=== PATIENT | male | born 1960 | race Caucasian/White ===

== ENCOUNTER → 2016-04-03 | Outpatient (CLI) | payer BC ==
[~2016-04-03] MED LIST: ATV1 PO; CHN5 PO; LISI20TA3 PO; LPT10 PO; RXC5 PO; TAMS0.4C38 PO
--- NOTE | 2016-04-03 09:03 | DIAGNOSTIC IMAGING REPORT ---
CT LUNG SCREENING, LOW DOSE WITH COMPUTER-AIDED DETECTION (CAD) CLINICAL HISTORY: Smoking history. Lung cancer screening. COMPARISON STUDY: Chest x-ray dated 03/23/14. CT DOSE: 94.20 mGy.cm TECHNIQUE: Low-dose helical CT was acquired without intravenous contrast from lung apices to bases and reconstructed at 2.5 mm every 2 mm. CAD was utilized for this study. FINDINGS: Thyroid: Imaged portions of the thyroid gland are normal in appearance. Thoracic aorta: There is mild atherosclerotic calcification of the thoracic aorta, which is normal in caliber and demonstrates standard 3 vessel arch anatomy. Heart: The heart is top normal in size and without pericardial effusion. There are coronary artery calcifications. The pulmonary trunk is normal in caliber. Lungs and pleural spaces: There is emphysematous change. No airspace consolidation or pleural effusion is identified. A 2 mm right middle lobe nodule is incidentally noted on image #[id number]. The trachea and central airways are clear. Mediastinum: There is no mediastinal lymphadenopathy. Aby: Not well assessed without IV contrast. Axilla: Clear. Upper abdomen: The liver appears enlarged and steatotic. Partially visualized upper abdominal viscera is otherwise within normal limits. Skeletal structures: There are no lytic or blastic osseous lesions. Mild arthritic change is noted in the shoulders. IMPRESSION: 1. Mild emphysema. 2. There is no airspace consolidation or pleural effusion. 3. No concerning pulmonary lesion is seen. CAD FINDINGS: Overall Lung RADS Category: 1 Lung RADS Management Recommendation: Lung-RADS 1: Continue annual screening in 12 months. Lung RADS Follow Up Date: 2017-04-03 Lung RADS Nodule ID: Electronically signed by: Gato Kaiser M.D. 04/03/2016 9:02 AM Dictated Date/Time: 04/03/2016 8:55 AM
== END | disposition home or self-care (01) ==
LOC: C.CTS 07:54
PROVIDERS: ATTEND Nurse Practitioner Family
DX: Z12.2 Encounter for screening for malignant neoplasm of respiratory organs (principal); F17.200 Nicotine dependence, unspecified, uncomplicated

== ENCOUNTER → 2017-04-05 | Outpatient (CLI) | payer OTHER ==
--- NOTE | 2017-04-05 11:38 | DIAGNOSTIC IMAGING REPORT ---
CT LUNG SCREENING, LOW DOSE WITH COMPUTER-AIDED DETECTION (CAD) CLINICAL HISTORY: 50 pack-year smoker. Lung screening study COMPARISON STUDY: 04/03/2016 CT DOSE: 91.27 mGy.cm TECHNIQUE: Low-dose helical CT was acquired without intravenous contrast from lung apices to bases and reconstructed at 2.5 mm every 2 mm. CAD was utilized for this study. A dose lowering technique was utilized adhering to the principles of ALARA. FINDINGS: Thyroid: Imaged portions of the thyroid gland are normal in appearance. Thoracic aorta: The thoracic aorta is normal in course and caliber, noting standard 3 vessel arch anatomy. Heart: The heart is normal in size. There are moderate coronary artery calcifications Lungs and pleural spaces: There is a stable 2 mm right middle lobe pulmonary nodule as visualized in image #[id number]. Mediastinum: There is no mediastinal lymphadenopathy. Aby: Clear. Axilla: Clear. Upper abdomen: Partially visualized upper abdominal viscera is within normal limits. Skeletal structures: There are no lytic or blastic osseous lesions. IMPRESSION: 1. No significant change from the preceding study 2. No suspicious pulmonary nodules 3. Continued one-year screening follow-up CAD FINDINGS: Overall Lung RADS Category: 1 Lung RADS Management Recommendation: Continue annual lung cancer screening. Lung RADS Follow Up Date: 2018-04-05 Lung RADS Nodule ID: Electronically signed by: Vimal Garay M.D. 04/05/2017 11:37 AM Dictated Date/Time: 04/05/2017 11:29 AM
== END | disposition home or self-care (01) ==
LOC: C.CTS 10:54
PROVIDERS: ATTEND Nurse Practitioner Family
DX: Z72.0 Tobacco use (principal); Z12.2 Encounter for screening for malignant neoplasm of respiratory organs

== ENCOUNTER 2018-09-07 06:11 | Inpatient (IN) ==
--- NOTE | 2018-08-26 16:38 | PAT Medication Instructions ---
Medication Instructions Date of Service August 26, 2018 Home Medications acetaminophen [Tylenol Extra Strength] 1,000 mg PO Q6H PRN amitriptyline 25 mg PO QPM atorvastatin 20 mg PO QAM cholecalciferol (vitamin D3) 2,000 unit PO QAM cyclobenzaprine 10 mg PO HS lisinopril 20 mg PO QAM methocarbamol 500 mg PO BID naproxen sodium [Aleve] 440 mg PO BID PRN omeprazole 20 mg PO QAM tamsulosin 0.4 mg PO QAM varenicline [Chantix] 1 mg PO BID ASK your surgeon for instructions naproxen sodium [Aleve] 440 mg PO BID PRN DO NOT take the morning of surgery cholecalciferol (vitamin D3) 2,000 unit PO QAM lisinopril 20 mg PO QAM methocarbamol 500 mg PO BID Take morning of surgery With a small sip of water, OTHERWISE NOTHING TO EAT OR DRINK AFTER MIDNIGHT: acetaminophen [Tylenol Extra Strength] 1,000 mg PO Q6H PRN (if needed) atorvastatin 20 mg PO QAM omeprazole 20 mg PO QAM tamsulosin 0.4 mg PO QAM varenicline [Chantix] 1 mg PO BID Take evening before surgery acetaminophen [Tylenol Extra Strength] 1,000 mg PO Q6H PRN (if needed) amitriptyline 25 mg PO QPM cyclobenzaprine 10 mg PO HS methocarbamol 500 mg PO BID varenicline [Chantix] 1 mg PO BID Other Notes If you have any questions please call us at [phone] or [phone] or [phone] or [phone]
--- NOTE | 2018-08-30 11:49 | Anesthesiology Consultation ---
Date of Service August 30, 2018 Assessment & Plan (1) Encounter for pre-operative examination: S/P lumbar surgery 09/2015 = MAC #3, ETT 8.0, grade view I, no issues noted on record. Egg allergy -- however, pt has had propofol with several past surgeries. Chart Review Chart Review: Acceptable Risk for Surgery and Patient seen in Pre Admission Testing Teaching & Discussion Instructed NPO after midnight before surgery, except medications with 15 cc of water. Medication instructions provided according to the PAT guidelines. History Surgery Operation Date: 09/07/18 11:45 Proposed Procedures p C5-C6, C6-C7 Anterior Cervical Discectomy and Fusion, C4-C5 Hardware Removal, Spinal Cord Monitoring - Coy Evans, Height/Weight Height: 5 ft 11 in Weight: 106.5 kg Allergies Allergy/AdvReac Type Severity Reaction Status Date / Time Egg Derived AdvReac Unknown GI UPSET Verified 08/25/18 11:43 Medications Home Medications Medication Instructions Recorded Confirmed Last Taken acetaminophen [Tylenol Extra 1,000 mg PO Q6H PRN 08/25/18 08/25/18 Unknown Strength] amitriptyline 25 mg PO QPM 08/25/18 08/25/18 Unknown atorvastatin 20 mg PO QAM 08/25/18 08/25/18 Unknown cholecalciferol (vitamin D3) 2,000 unit PO QAM 08/25/18 08/25/18 Unknown [Vitamin D3] cyclobenzaprine 10 mg PO HS 08/25/18 08/25/18 Unknown lisinopril 20 mg PO QAM 08/25/18 08/25/18 Unknown methocarbamol 500 mg PO BID 08/25/18 08/25/18 Unknown naproxen sodium [Aleve] 440 mg PO BID PRN 08/25/18 08/25/18 Unknown omeprazole 20 mg PO QAM 08/25/18 08/25/18 Unknown tamsulosin 0.4 mg PO QAM 08/25/18 08/25/18 Unknown varenicline [Chantix] 1 mg PO BID 08/25/18 08/25/18 Unknown Past Medical History Medical History Arthritis BPH (benign prostatic hyperplasia) Chronic obstructive pulmonary disease BORDERLINE-NO INHALERS GERD (gastroesophageal reflux disease) Hyperlipidemia Hypertension Obesity Exercise / Class Metabolic Activity II 4-5 Yardwork/Stairs/Walk up hill (Does stairs daily without CP or SOB) Past Family History Family History Brother Family history of diabetes mellitus Brother Family history of diabetes mellitus Mother Family history of diabetes mellitus Past Surgical History Surgical History Fusion of spine CERVICAL Fusion of spine LUMBAR H/O elbow surgery LEFT ULNAR NERVE History of arthroscopy KNEE History of colonoscopy S/P debridement ANKLE Past Anesthesia History No Hx of Anesthesia Complications and No Family Hx of Anesthesia Complications History of PONV No Hx of PONV and No Hx of Motion Sickness STOP BANG Total 5 Social History Smoking Status: Current every day smoker Smoking cigarettes per day: WAS 1 1 /2 PPD-DOWN TO 5 CIGS A DAY-TRYING TO QUIT ON CHANTIX Do You Dip or Chew Tobacco: No Hx Alcohol Use: Yes Alcohol type: beer alcohol intake frequency: 3 or more drinks per day (6-8 drinks daily) Hx Substance Use: No Review of Systems Pt denies any recent chest pain, shortness of breath, palpitations, cough, fever or URI. Physical Exam Vital Signs BP: 131/80 P: 62bpm SPO2: 94% RA T: 98.3 F R: 18 ENMT Mouth: + dental restorations (few crowns); no chipped teeth and no loose teeth Thyromental Distance: < 3.5 Finger Breadths (3) Mallampati Class: I Missing several teeth. Neck + limited neck extension (moderately, 2/2 fusion and pain) Respiratory normal respiratory effort Very soft end expiratory wheeze in R lung base, otherwise CTA. Cardiovascular Rate/Rhythm: regular rate and regular rhythm Heart Sounds: no murmur Vessels: no carotid bruit Extremities: no edema Testing Laboratory Results 08/30/18 11:59 PT 10.9 Seconds (9.0-12.0) 08/30/18 11:59 INR 1.1 (0.9-1.1) 08/30/18 11:59 APTT 26.3 Seconds (21.0-31.0) 08/30/18 11:59 Urine Color Yellow 08/30/18 11:59 Urine Appearance Clear (Clear) 08/30/18 11:59 Urine pH 5.0 (4.5-7.5) 08/30/18 11:59 Ur Specific [place] 1.024 (1.000-1.030) 08/30/18 11:59 Urine Protein Negative (Negative) 08/30/18 11:59 Urine Glucose (UA) Negative (Negative) 08/30/18 11:59 Urine Ketones Negative (Negative) 08/30/18 11:59 Urine Nitrite Negative (Negative) 08/30/18 11:59 Ur Leukocyte Esterase Negative (Negative) 08/30/18 11:59 Blood Type O Positive 08/30/18 11:59 Antibody Screen NEGATIVE 08/30/18 11:59 Electrocardiogram Date: 08/30/18 Findings: + NSR @ (61) Other Testing 06/06/[address] IMPRESSION: 1. No acute intrathoracic abnormality. 2. Unchanged 2 mm solid nodule right middle lobe, stable from 04/03/2016 suggestive of benign etiology. No suspicious pulmonary nodules identified.
[2018-08-30 13:48] LABS: Basophils # (auto) 0.01 K/uL (0-0.2); Basophils % (auto) 0.1 %; Eosinophils # (auto) 0.19 K/uL (0-0.5); Eosinophils % (auto) 2.6 %; Hematocrit (blood only) 41.1 % (42-52); Hemoglobin 13.8 g/dL (14.0-18.0); Immature Granulocytes # (auto) 0.03 K/uL (0.00-0.02); Immature Granulocytes % (auto) 0.4 %; Lymphocytes # (auto) 2.84 K/uL (1.2-3.4); Lymphocytes % (auto) 39.2 %; Mean Corpuscular Hgb Conc 33.6 g/dL (32-36); Mean Corpuscular Volume 91.7 fL (80-100); Mean Platelet Volume 10.8 fL (7.4-10.4); Monocytes # (auto) 0.72 K/uL (0.11-0.59); Monocytes % (auto) 9.9 %; Neutrophils # (auto) 3.46 K/uL (1.4-6.5); Neutrophils % (auto) 47.8 %; Platelet Count 175 K/uL (130-400); RDW Coefficient of Variation 12.9 % (11.5-14.5); RDW Standard Deviation 43.1 fL (36.4-46.3); Red Blood Count 4.48 M/uL (4.7-6.1); White Blood Count 7.25 K/uL (4.8-10.8)
[2018-08-30 13:49] LABS: Appearance Urine Clear (Clear); Bilirubin Urine Negative (Negative); Blood Urine Negative (Negative); Color Urine Yellow; Glucose Urine UA Negative (Negative); Ketones Urine Negative (Negative); Leukocyte Esterase Urine Negative (Negative); Nitrite Urine Negative (Negative); Protein Urine Negative (Negative); Specific Gravity Urine 1.024 (1.000-1.030); Urobilinogen Urine Negative (Negative)
[2018-08-30 13:58] LABS: INR 1.1 (0.9-1.1); Partial Thromboplastin Time 26.3 Seconds (21.0-31.0); Prothrombin Time 10.9 Seconds (9.0-12.0)
[~2018-09-07 06:11] MED LIST changes: -ATV1 PO; +CEFAZOLIN 2000MG 2,000 MG/15 ML SYR IV SCH; -CHN5 PO; -LISI20TA3 PO; -LPT10 PO; +LR 15ML/HR IV SCH; -RXC5 PO; -TAMS0.4C38 PO
[2018-09-07] MEDS ORDERED: fentaNYL citrate 100 MCG/2 ML VIAL ONE ×4 (06:40→09:36)
[2018-09-07] MEDS ORDERED: MIDAZOLAM HCL 1 MG/ML 2ML VIAL ONE (06:40)
[2018-09-07] MEDS ORDERED: BACITRACIN INJ 50,000 UNIT VIAL ONE (06:55)
[2018-09-07] MEDS ORDERED: ONDANSETRON INJ 2 MG/ML 2 ML VIAL IV PRN ×2 (06:57→11:26)
[2018-09-07] MEDS ORDERED: ATROPINE SULFATE 0.1 MG/ML 10ML SYR IV PRN (06:57)
[2018-09-07] MEDS ORDERED: fentaNYL citrate 100 MCG/2 ML VIAL IV PRN (06:57)
[2018-09-07] MEDS ORDERED: HYDROmorphone INJ 2 MG/ML SYR/VIAL IV PRN (06:57)
[2018-09-07] MEDS ORDERED: ePHEDrine sulfate 50 MG/ML AMP IV PRN (06:57)
[2018-09-07] MEDS ORDERED: PROPOFOL IV EMULSION 10 MG/ML 100 ML VIAL IV ONE (07:13)
[2018-09-07] MEDS ORDERED: HYDROmorphone INJ 2 MG/ML SYR/VIAL ONE (07:14)
[2018-09-07] MEDS ORDERED: PROPOFOL IV EMULSION 10 MG/ML 20 ML VIAL IV ONE (07:15)
[2018-09-07] MEDS ORDERED: ONDANSETRON INJ 2 MG/ML 2 ML VIAL ONE (07:15)
[2018-09-07] MEDS ORDERED: GLYCOPYRROLATE 0.2 MG/ML VIAL ONE (07:15)
[2018-09-07] MEDS ORDERED: NEOSTIGMINE METHYLSULFATE 1 MG/ML 10ML VIAL ONE (07:15)
[2018-09-07] MEDS ORDERED: DEXAMETHASONE SOD INJ 4 MG/ML VIAL ONE (07:15)
[2018-09-07] MEDS ORDERED: LIDOCAINE HCL 2% 2 ML VIAL/AMP(20MG/ML) INFIL ONE (07:15)
[2018-09-07] MEDS ORDERED: ROCURONIUM BROMIDE 10 MG/ML 5 ML VIAL ONE (07:15)
--- NOTE | 2018-09-07 07:32 | History & Physical Bridge Note ---
Date of Service September 07, 2018 History & Physical Bridge Note I have examined the patient, reviewed the History & Physical and in the interval since the performance of the History & Physical I have noted the following changes of clinical significance: no changes noted
--- NOTE | 2018-09-07 07:33 | History & Physical Report ---
Date of Service September 07, 2018 Assessment & Plan (1) Cervical stenosis of spinal canal: Anterior cervical discectomy and fusion C5-6 and C6-7 hardware removal C4- 5 Present on Admission?: Yes History of Present Illness Chief Complaint: Neck and arm pain Primary Care Provider: Agnes Carrasco This is a 58-year-old male that presents with chronic persistent neck and arm pain. After failing extensive course of nonoperative care is here for surgical intervention. Allergies Allergy/AdvReac Type Severity Reaction Status Date / Time Egg Derived AdvReac Unknown GI UPSET Verified 08/25/18 11:43 Home Medications Home Medications Medication Instructions Recorded Confirmed Type acetaminophen [Tylenol Extra 1,000 mg PO Q6H PRN 08/25/18 09/07/18 History Strength] amitriptyline 25 mg PO QPM 08/25/18 09/07/18 History atorvastatin 20 mg PO QAM 08/25/18 09/07/18 History cholecalciferol (vitamin D3) 2,000 unit PO QAM 08/25/18 09/07/18 History [Vitamin D3] cyclobenzaprine 10 mg PO HS 08/25/18 09/07/18 History lisinopril 20 mg PO QAM 08/25/18 09/07/18 History methocarbamol 500 mg PO BID 08/25/18 09/07/18 History naproxen sodium [Aleve] 440 mg PO BID PRN 08/25/18 09/07/18 History omeprazole 20 mg PO QAM 08/25/18 09/07/18 History tamsulosin 0.4 mg PO QAM 08/25/18 09/07/18 History varenicline [Chantix] 1 mg PO BID 08/25/18 09/07/18 History Past Med/Surg History Medical History Arthritis BPH (benign prostatic hyperplasia) Chronic obstructive pulmonary disease BORDERLINE-NO INHALERS GERD (gastroesophageal reflux disease) Hyperlipidemia Hypertension Obesity Surgical History Fusion of spine CERVICAL Fusion of spine LUMBAR H/O elbow surgery LEFT ULNAR NERVE History of arthroscopy KNEE History of colonoscopy S/P debridement ANKLE Family History Brother Family history of diabetes mellitus Brother Family history of diabetes mellitus Mother Family history of diabetes mellitus Social History Preferred Language: Italian Communication Ability: Effective Clinical Research Monitor Required: No Beliefs That Will Affect Care: None Current Living Situation: Spouse and Family Other Information That Helps Us Care for You: No Feels Safe at Home: Yes Safety Concerns: Feels Safe At This Time Smoking Status: Current every day smoker Cigarettes Per Day: WAS 1 1 /2 PPD- DOWN TO 5 CIGS A DAY-TRYING TO QUIT ON CHANTIX Do You Dip or Chew Tobacco: No Second Hand Exposure: Yes Hx Alcohol Use: Yes Alcohol type: beer Hx Substance Use: No Physical Exam Physical Exam: Patient is alert and oriented neurologically intact. Results & Data Vital Signs (Past 12 Hours) Vital Signs Temp Pulse Resp BP Pulse Ox 09/07/18 06:53 36.5 C 64 22 142/82 H 95
[2018-09-07] MEDS ORDERED: PHENYLEPHRINE 100MCG/ML 5ML SYR ONE (08:43)
[2018-09-07] MEDS ORDERED: ALBUTEROL HFA INHALER 8.5 GM ONE (08:43)
[2018-09-07] MEDS ORDERED: ePHEDrine sulfate 50 MG/ML AMP ONE ×2 (08:43→09:09)
[2018-09-07] MEDS ORDERED: ePHEDrine sulfate 50 MG/ML SYR ONE (08:43)
--- NOTE | 2018-09-07 09:48 | Operative Report ---
Post Operative Report Pre & Post Diagnosis Operation Date: 09/07/18 07:45 Pre-Op Diagnosis: Cervical spinal stenosis with radiculopathy Post-Op Diagnosis: Same Procedure Operation Date: 09/07/18 07:45 Actual Procedures #1 removal of anterior cervical instrumentation C4-5. #2 exploration of fusion C4-5. #3 anterior cervical discectomy with bilateral foraminotomies C5-6 and C 6-7. #4 anterior cervical arthrodesis C5-6 and C6-7. #5 placement of cortical allograft filled with DBM 9 mm in height at C5-6 and 8 mm at C6-7. #6 application braga plate and screws from C5-C7. Surgeon Coy Evans, DO Digital Marketing Specialist Lucinda Naranjo Estimated Blood Loss 25 Findings See Below Patient is 5 foot 11 inches tall weighing 106 kg with a BMI in excess of 32. Patient's significant body habitus created increased technical difficulty adding at least 25% increase in operative time. Specimens None Indications This is a 58-year-old male well-known to me that presents with chronic persistent neck and arm symptoms. After failing extensive course of nonoperative care he is here for surgical intervention. Description of Procedure Patient was met with identified and informed consent obtained. Patient was then taken to the operative suite underwent intubation placed in a supine position Esequiel table the head [place] medical director/head team physician. All bony prominences well-padded eyes inspected to ensure no external pressure placed upon. This point the anterior cervical spine was prepped and draped in the normal sterile fashion. Identified the C5-6 disc patient transverse incision was placed on the right anterior. Marked scarring was appreciated and encountered throughout the dissection from his previous surgery. Nonetheless was able to expose from C4- C7. I then removed the anterior cervical plate C4-C5 explore the fusion mass noting it to be intact. And then performed a complete discectomy of C5-6 out to the uncovertebral joints bilaterally. This included bilateral foraminotomies. [place] distracting pins were utilized to assist in visualization. The endplates were then burred to subcortical being bone and a 9 mm cortical allograft filled with DBM tapped in position. Then proceeded to C6-7 again complete discectomy performed out to the uncovertebral joints bilaterally. [place] distracting pins again utilized. Perform bilateral foraminotomies. Endplates were then burred to subcortical bleeding bone and 8 mm cortical allograft filled with DBM tapped in position. Distraction apparatus was removed all anterior osteophytes's burred with smooth cortical surface and a braga plate and screws applied with the assistance of fluoroscopy. Incision was then copiously irrigated explored to ensure no damage to surrounding structures or remaining bleeding. 10 round DIEGO drain inserted. The incision was then closed with 2 Vicryl in a fashion for Monocryl for final closure. Steri-Strip sterile dressings placed. Patient will continue to PACU stable condition. Please note Lucinda Naranjo present all the entire procedure involved in patient positioning complex portions of the surgery and final skin closure. Lastly spinal cord monitoring was utilized that procedure no changes noted. I attest to the content of the Intraoperative Record and any orders documented therein. Any exceptions are noted below.
--- NOTE | 2018-09-07 09:51 | Fluoroscopy Report ---
FL cervical 2-3V HISTORY: 58 years-old Male ACDF C5-7 status post lower cervical spine fusion COMPARISON: MRI cervical spine 04/25/2018 TECHNIQUE: 2 spot fluoroscopic images of the cervical spine were obtained utilizing 8.5 seconds fluor oscopy time FINDINGS: Anterior plate and screw fusion hardware is noted at what appears to be the C5-C7 levels. Endotrachea l tube and surgical drainage catheter noted. Inferior aspect of the hardware is only partially imaged on the lateral view secondary to overlying soft tissue. Multilevel spondylitic spurring with facet a rthrosis. IMPRESSION: Fluoroscopic assistance as above. Please see operative report for further details. The above report was generated using voice recognition software. It may contain grammatical, syntax o r spelling errors. Electronically signed by: Garfield Rodgers M.D. 09/07/2018 9:50 AM
[2018-09-07] MEDS ORDERED: ESMOLOL HCL INJ 10 MG/ML 10ML VIAL IV ONE (09:53)
[2018-09-07] MEDS ORDERED: HYDROmorphone INJ 0.5 MG/0.5 ML SYR IV PRN (11:26)
[2018-09-07] MEDS ORDERED: DO NOT ADMINISTER PNEUMOCOCCAL VACCINE PRN (11:26)
[2018-09-07] MEDS ORDERED: DiphenhydrAMINE HCL 50 MG/ML VIAL IV PRN (11:26)
[2018-09-07] MEDS ORDERED: ACETAMINOPHEN 500 MG TAB PO PRN (11:26)
[2018-09-07] MEDS ORDERED: DEXAMETHASONE SOD PHOSPHATE 8 MG in SYRINGE 0 ML IV PRN (11:26)
[2018-09-07] MEDS ORDERED: NALOXONE HCL 0.4 MG/1 ML VIAL/CARP IV PRN (11:26)
[2018-09-07] MEDS ORDERED: MAGNESIUM HYDROXIDE SUSP 30 ML UDC PO PRN (11:26)
[2018-09-07] MEDS ORDERED: LORazepam 0.5 MG TAB PO PRN (11:26)
[2018-09-07] MEDS ORDERED: LORazepam 0.5 MG/1 ML VIAL IV PRN (11:26)
[2018-09-07] MEDS ORDERED: ACETAMINOPHEN 1,000 MG/100 ML VIAL IV PRN (11:26)
[2018-09-07] MEDS ORDERED: DO NOT ADMINISTER FLU VACCINE PRN (11:26)
[2018-09-07] MEDS ORDERED: RACEPINEPHRINE 2.25% NEBU SOLN 0.5 ML VIAL INH PRN (11:26)
[2018-09-07] MEDS ORDERED: SCOPOLAMINE 1.5 MG TDSY TD SCH (12:00)
[2018-09-07] MEDS ORDERED: SUCCINYLCHOLINE CHLORIDE 20 MG/ML 10 ML VIAL ONE (13:26)
[2018-09-07] MEDS: LACTATED RINGER'S 1,000 ML IV SCH (13:29)
--- NOTE | 2018-09-07 13:45 | Anesthesiology Progress Note ---
Date of Service September 07, 2018 Anesthesia Post Procedure Vital Signs Vital Signs: Temp Pulse Pulse Pulse Resp BP Pulse Ox 09/07/18 13:15 36.3 C L 85 16 145/74 H 96 09/07/18 12:15 36.3 C L 74 18 147/74 H 97 09/07/18 11:48 82 16 94 09/07/18 11:45 36.3 C L 73 16 157/71 H 97 09/07/18 11:15 36.5 C 77 16 147/71 H 98 09/07/18 11:00 36.3 C L 74 16 146/64 H 98 09/07/18 10:50 36.3 C L 72 16 163/67 H 99 09/07/18 10:40 36.4 C L 75 20 159/73 H 99 09/07/18 10:30 78 19 151/74 H 98 09/07/18 10:20 75 15 162/79 H 97 09/07/18 10:10 79 14 141/71 H 98 09/07/18 10:00 79 14 146/76 H 100 09/07/18 09:50 36.1 C L 96 H 14 169/87 H 97 09/07/18 06:53 36.5 C 64 22 142/82 H 95 Pain Intensity Bilateral Lower Neck: Pain Intensity: 4 Bilateral Lower Back: Pain Intensity: 7 Transfer of Care Handoff Completed per policy Notes Mental Status: alert / awake / arousable and participated in evaluation Patient Amnestic to Procedure: Yes Nausea / Vomiting: adequately controlled Pain: adequately controlled Airway Patency, RR, SpO2: stable & adequate BP & HR: stable & adequate Hydration State: stable & adequate Anesthetic Complications: no major complications apparent and Pt Satisfied with anesthetic care
[2018-09-07] MEDS: CEFAZOLIN 2000MG 2,000 MG/15 ML SYR IV SCH ×2 (16:03→23:16)
[2018-09-07] MEDS: CHECK SCOPOLAMINE PATCH PLACEMENT SCH ×2 (16:16→23:17)
[2018-09-07] MEDS: OXYCODONE HCL IR 5 MG TAB (IMMEDIATE RELEASE) PO PRN ×2 (17:52→21:59)
[2018-09-07] MEDS: DOCUSATE SODIUM 100 MG CAP PO SCH (20:25)
[2018-09-07] MEDS: VARENICLINE 1 MG TAB PO SCH (20:25)
[2018-09-07] MEDS: METHOCARBAMOL 500 MG TABLET PO SCH (20:25)
[2018-09-07] MEDS ORDERED: CYCLOBENZAPRINE HCL 10 MG TAB PO SCH (21:00)
[2018-09-07] MEDS ORDERED: AMITRIPTYLINE HCL 25 MG TAB PO SCH (21:00)
[2018-09-08] MEDS: LACTATED RINGER'S 1,000 ML IV SCH (01:29)
[2018-09-08] MEDS: CEFAZOLIN 2000MG 2,000 MG/15 ML SYR IV SCH (08:10)
[2018-09-08] MEDS: CHECK SCOPOLAMINE PATCH PLACEMENT SCH (08:10)
[2018-09-08] MEDS: OXYCODONE HCL IR 5 MG TAB (IMMEDIATE RELEASE) PO PRN (08:24)
[2018-09-08] MEDS: VARENICLINE 1 MG TAB PO SCH (08:26)
[2018-09-08] MEDS: DOCUSATE SODIUM 100 MG CAP PO SCH (08:26)
[2018-09-08] MEDS: METHOCARBAMOL 500 MG TABLET PO SCH (08:27)
[2018-09-08] MEDS ORDERED: PANTOprazole 40 MG TAB PO SCH (09:00)
[2018-09-08] MEDS ORDERED: LISINOPRIL 20 MG TAB PO SCH (09:00)
[2018-09-08] MEDS ORDERED: CHOLECALCIFEROL 1,000 UNITS TAB PO SCH (09:00)
[2018-09-08] MEDS ORDERED: ATORVASTATIN 20 MG TAB PO SCH (09:00)
[2018-09-08] MEDS ORDERED: TAMSULOSIN HCL 0.4 MG CAP PO SCH (09:00)
--- NOTE | 2018-09-08 12:24 | Discharge Summary ---
Date of Service September 08, 2018 Admission HPI Per Admitting Provider This is a 58-year-old male that presents with chronic persistent neck and arm pain. After failing extensive course of nonoperative care is here for surgical intervention. Principal Diagnosis Cervical spinal stenosis with radiculopathy Discharge Data Allergies Allergy/AdvReac Type Severity Reaction Status Date / Time Egg Derived AdvReac Unknown GI UPSET Verified 08/25/18 11:43 Procedures Performed Operation Date: 09/07/18 07:45 Actual Procedures p C5-C6, C6-C7 Anterior Cervical Discectomy and Fusion, with Spinal Cord Monitoring(Not Applicable) - Coy Evans DO s C4-C5 Hardware Removal(Not Applicable) - Coy Evans DO Ordered Studies 09/07/18 07:45 FL cervical 2-3V Routine FL fluoroscopy <1hr Routine Hospital Course (1) Cervical stenosis of spinal canal: Patient underwent anterior cervical discectomy and fusion tolerated this well was taken to the orthopedic for postoperative. Postop day 1 he was swallowing well no hoarseness arm symptoms markedly improved DIEGO drain decreasing appropriately. Subsequent discharge home. Discharge orders and instructions from the chart for further review. Total Time Total Time Spent Total Time Spent (In Minutes): 10 minutes Discharge Plan Discharge Items Patient Disposition: Home - Self-Care Reason For Visit: Spinal Stenosis, Cervical Region Discharge Diagnosis: cervical stenosis Discharge Goals: Decrease discomfort Activity: Per 'Additional Instructions' section Non-emergency contact: Primary Care Provider Call non-emergency contact if: you have any medication questions Follow-up/Referrals: Agnes Carrasco [Primary Care Provider] - Diet: Regular Addtl Provider Instructions: ACTIVITY RECOMMENDATIONS: SELF CARE INSTRUCTIONS AFTER CERVICAL FUSIONS 1. No smoking. Smoking drastically decreases the chance of a solid fusion. 2. No bending, lifting more than 5 pounds, or twisting (roll like a log when turning in bed). 3. You may shower 3 days after surgery. Thoroughly dry wound. Do not soak in the tub. 4. Cervical collar: Must be worn at all times including sleeping. You may remove the brace only to bath, eat and if you are sitting in a recliner. 5. Please walk as much as you can for exercise. Gradually increase the distance that you walk as your endurance increases. SPECIAL CARE INSTRUCTIONS: VERY IMPORTANT TO READ AND REVIEW A. Do not take any anti-inflammatory medications (i.e. Indocin, Advil, Aspirin, Naprosyn, Aleve, Motrin, etc.) as these may inhibit the chance of a solid fusion. Tylenol is okay to take. B. Your surgical incision has been closed with a cosmetic suture under the skin that will dissolve in about 6 weeks. In 14 days, you can use a pair of clean scissors and cut the suture that is left outside of the skin at the ends of your incision. C. Complications are uncommon, but please contact us if you have any signs or symptoms of: 1. wound infection (fever higher than 102.5 degrees F, redness, separation of wound, drainage, or increasing pain from the incision) 2. blood clots in legs (pain, swelling, redness and warmth in legs) 3. urinary tract infection (fever higher than 102.5 degrees, burning upon urination or increased frequency of urination) 4. nerve problems (inability to walk on your toes or heels, numbness, loss of bowel or bladder control) 5. any other symptoms that concern you. D. Please call the office at if you have any concerns or questions about your operation or recovery. MANAGING PAIN AFTER SPINAL SURGERY 1. Narcotic medication is intended for short-term use and will be provided for surgical pain. Surgical pain usually lasts for a period of 4-6 weeks. Narcotic medication includes Percocet, Vicodin, Darvocet, Tylenol #3 or Lortab. 2. Longer-term pain is more appropriately treated with non-narcotic medication such as Tylenol ES. 3. Muscle spasm is not appropriately treated with narcotics. Muscle relaxers such as Soma, Flexeril or Skelaxin can be used along with Tylenol ES. 4. Remember that we all live with some "aches and pains". This is not unusual or uncommon after an injury or as we get older. 5. We will provide appropriate medication within the normal guidelines of their prescribed use. We will also be very cautious and aware of potential abuse and extended duration of patients' medication needs. 6. Please allow 2-3 days to process refills. Prescriptions will not be mailed but must be picked up at the office. FOLLOW UP VISIT: Keep your scheduled follow-up appointment. Any questions, please call the office at . Prescriptions: New oxycodone 5 mg Tablet 5 mg PO Q4H PRN (Reason: Pain) Qty: 30 RF: 0 Continued cyclobenzaprine 10 mg Tablet 10 mg PO HS RF: 0 methocarbamol 500 mg Tablet 500 mg PO BID RF: 0 atorvastatin 20 mg Tablet 20 mg PO QAM RF: 0 lisinopril 20 mg Tablet 20 mg PO QAM RF: 0 amitriptyline 25 mg Tablet 25 mg PO QPM RF: 0 tamsulosin 0.4 mg Capsule 0.4 mg PO QAM RF: 0 cholecalciferol (vitamin D3) [Vitamin D3] 2,000 unit Capsule 2,000 unit PO QAM RF: 0 Chantix 1 mg Tablet 1 mg PO BID RF: 0 omeprazole 20 mg Tablet,Delayed Release (Dr/Ec) 20 mg PO QAM RF: 0 acetaminophen [Tylenol Extra Strength] 500 mg Tablet 1,000 mg PO Q6H PRN (Reason: Pain) RF: 0 naproxen sodium [Aleve] 220 mg Capsule 440 mg PO BID PRN (Reason: Pain) RF: 0 Stand-Alone Forms: [employer] [facility] [employer], Opioid Pain Management [facility]/Other Patient Handouts: DVT Prevent Discharge Orders: Discharge Order (Routine); Ordered 09/08/18 Ordered By: Coy Evans Admission Data Admit Date/Time: 09/07/18 09:51 Attending Provider: Coy Evans Admit Provider: Coy Evans Primary Care Provider: Agnes Carrasco Service: Surgical Services Other Interventions: Discharge Summary Assessment (RN) Last Done: 09/08/18 10:39 DC Date/Time DO NOT enter until pt leaves facility: 09/08/18 11:56
== END 2018-09-08 11:56 | disposition home or self-care (01) | DRG 473 ==
LOC: ASU 06:11 → 3E 09:51

== ENCOUNTER 2024-04-19 23:10 | Inpatient (IN) ==
--- NOTE | 2024-04-19 23:20 | Emergency Department Note ---
Impression & Plan Pneumonia, RAJIV (acute kidney injury), Hypoxia ED Provider Note CHIEF COMPLAINT: Chest pain HISTORY OF PRESENTING ILLNESS: The patient is a pleasant 64-year-old male who arrives to the emergency department for evaluation of right-sided chest pain. He reports he has had chest pain over the last 3 weeks. He states he is unable to sleep due to pain, therefore decided to come to the emergency department. He also reports some shortness of breath. He reports fever, body aches, and chills. He reports his was recently ill, however her symptoms have resolved. He states he does currently smoke. He states he does drink alcohol, at baseline, usually around 8 beers per day, however he has not had a drink in over a week. He denies abdominal pain, nausea, vomiting. REVIEW OF SYSTEMS: See HPI for pertinent positives and pertinent negatives. ALLERGIES: See below MEDICATIONS: See below PAST MEDICAL HISTORY: See below PHYSICAL EXAM: VITALS: Vitals are noted on the nurse's note and reviewed by myself. Vital signs stable. GENERAL: 64-year-old male, in no acute distress, nondiaphoretic, well-developed well-nourished. SKIN: The skin was without rashes, erythema, edema, or bruising. HEAD: Normocephalic atraumatic. NECK: Supple without nuchal rigidity. No JVD. HEART: Tachycardia with regular rhythm without murmurs gallops or rubs. LUNGS: Clear throughout with the exception of the right middle lobe, coarse lung sounds. ABDOMEN: Positive bowel sounds x 4. Soft, nontender, without masses or organomegaly. Simmons sign negative. No guarding or rebound tenderness. MUSCULOSKELETAL: No muscle atrophy, erythema, or edema noted. Strength 5/5 throughout. NEURO: Patient was alert and oriented to person place and time. No focal neurological deficits. DIFFERENTIAL DIAGNOSIS: Cardiac ischemia, aortic dissection, pulmonary embolism, pneumothorax, pneumonia, pericarditis, myocarditis, esophageal rupture, GERD, cholecystitis, pancreatitis, musculoskeletal, as well as other pathologies. 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 Patient was placed on the secondary school principal and continuous pulse ox. Patient was noted to be in normal sinus rhythm at an initial rate of 103 bpm per my interpretation. EKG: EKG was interpreted by myself as NSR at a rate of 97bpm with no ST elevation, or signs of ischemia, with no significant change from previous in 2021. INTERPRETATION OF LABS: I interpreted the labs with full lab results as below in the lab section of this note. Pertinent lab results discussed in the MDM section below. INTERPRETATION OF IMAGING: Imaging studies were interpreted by myself and read by radiology as per the imaging section of this note. CHRONIC MEDICAL/SOCIAL CONDITIONS AFFECTING CARE: Current smoker MDM SUMMARY: The patient is a 64-year-old male who arrives to the emergency department for evaluation of the above-stated complaint. Upon arrival, a cardiac workup was obtained including a saline lock, basic labs,, lipase, troponin, chest x-ray, and EKG as well as an upper respiratory BioFire panel. Lab work shows leukocytosis, 15.23, with a stable anemia. CMP shows acute kidney injury, with elevated BUN 31, creatinine 1.94. Lipase negative. Initial troponin 15.5. Upper respiratory BioFire panel negative. Chest x-ray per my interpretation shows linear density, the right middle lobe. The patient was requiring supplemental O2, for an oxygen saturation of 88%. He was placed on 2 L nasal cannula, with improvement in saturation to the low to mid 90s. Blood cultures, lactate, procalcitonin were obtained as well as initiation of empiric antibiotics. Lactate 0.9, procalcitonin 1.15. CT imaging of the chest with IV contrast was obtained which shows I right upper lobe anterior segment air space subsegmental consolidation extending from the hilum level to the peripheral pleura, limited with the minor fissure. I spoke with Dr. Hayde Salas, from the [facility] hospitalist group, who agreed to evaluate the patient, and admit him under her services. Please refer to her documentation for further patient workup and care. DIAGNOSIS: Hypoxia, pneumonia, acute kidney injury The chart was completed utilizing [employer] Speech voice recognition software. Grammatical errors, random word insertions, pronoun errors, and incomplete sentences are an occasional consequence of this system due to software limitations, ambient noise, and hardware issues. Any formal questions or concerns about the content, text, or information contained within the body of this dictation should be directly addressed to the provider for clarification. Past Med/Surg History Problem List (Updated 04/20/24 @ 04:55 by GERA López) Hypoxia (Acute) Hyponatremia RAJIV (acute kidney injury) (Acute) Pneumonia (Acute) Alcohol abuse Tobacco abuse Hypertension (Acute) Dyslipidemia (Acute) Lumbar stenosis with neurogenic claudication Tendon laceration (Acute) Encounter for pre-operative examination Cervical stenosis of spinal canal Lumbosacral radiculopathy Chest pain COVID-19 (Acute) Coronary artery calcification follows with [facility] Medical History Fatty liver Obesity Arthritis BPH (benign prostatic hyperplasia) GERD (gastroesophageal reflux disease) Chronic obstructive pulmonary disease BORDERLINE-NO INHALERS Hyperlipidemia Hypertension Surgical History S/P insertion of spinal cord stimulator History of colonoscopy S/P debridement ANKLE H/O elbow surgery LEFT ULNAR NERVE History of arthroscopy KNEE Fusion of spine LUMBAR Fusion of spine CERVICAL; limited ROM up/down & side to side Family History Brother Family history of diabetes mellitus Brother Family history of diabetes mellitus Mother Family history of diabetes mellitus Social History Smoking Status: Current some day smoker Tobacco Type: Cigarettes Cigarettes Per Day: 10; Second Hand Exposure: Yes; Do You Dip or Chew Tobacco: No; Hx Alcohol Use: Yes Alcohol type: beer Hx Substance Use: No Preferred Language: Albanian Communication Ability: Effective 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 Beliefs That Will Affect Care: None marital status: Current Living Situation: Spouse and Family Feels Safe at Home: Yes Assistive Devices: Glasses Allergies Allergies Allergy/AdvReac Type Severity Reaction Status Date / Time Egg Derived AdvReac Unknown GI UPSET Verified 01/05/24 10:49 Home Meds Home Medications Medication Instructions Recorded Confirmed acetaminophen 500 mg tablet 1,000 mg PO Q6H PRN Pain 08/25/18 01/05/24 (Tylenol Extra Strength) omeprazole 20 mg tablet,delayed 20 mg PO QAM 08/25/18 01/05/24 release tamsulosin 0.4 mg capsule 0.4 mg PO QAM 08/25/18 01/05/24 methocarbamol 500 mg tablet 500 mg PO TID 11/04/20 01/05/24 aspirin 81 mg tablet,delayed 81 mg PO QAM 01/16/21 01/05/24 release cholecalciferol (vitamin D3) 50 2,000 unit PO QAM 01/16/21 01/05/24 mcg (2,000 unit) capsule (Vitamin D3) varenicline tartrate 1 mg tablet 1 mg PO BID 01/16/21 01/05/24 bupropion HCl 100 mg tablet 100 mg PO DAILY 11/15/23 01/05/24 pregabalin 100 mg capsule (Lyrica) 100 mg PO TID 11/15/23 01/05/24 atorvastatin 40 mg tablet 80 mg PO QAM 01/05/24 lisinopril 20 mg tablet 40 mg PO QAM 01/05/24 01/05/24 Previous Rx's Medication Instructions Recorded metoprolol succinate 25 mg 25 mg PO QAM #90 tabs 08/31/23 tablet,extended release 24 hr amlodipine 5 mg tablet 5 mg PO DAILY #90 tabs 11/15/23 Results & Data (ED) Vital Signs Vital Signs - 24 hr 04/19/24 23:15 04/19/24 23:25 04/19/24 23:30 Temperature 39.5 C H Temperature Source Oral Pulse Rate 103 H 96 H 97 H Pulse Rate [Apical] Pulse Rate from SpO2 Sensor Pulse Rhythm Regular Pulse Rhythm [Apical] Respiratory Rate 24 18 Respiratory Effort / Characteristics Respiratory Depth Respiratory Pattern Blood Pressure 143/74 H Blood Pressure [Right Arm] Blood Pressure Mean 97 Blood Pressure Mean [Right Arm] Pulse Oximetry 93 92 Oxygen Delivery Method Room Air Room Air Oxygen Flow Rate Sepsis Recent Fever Within 48 Hours Yes Sepsis New/Unexplained Change in Mental Status No Sepsis Action Taken by Nursing No Action Required Oxygen Flow Rate - Titration Pulse Oximetry Post Tiitration 04/19/24 23:30 04/19/24 23:36 04/19/24 23:41 Temperature Temperature Source Pulse Rate 99 H Pulse Rate [Apical] 96 H Pulse Rate from SpO2 Sensor Pulse Rhythm Pulse Rhythm [Apical] Regular Respiratory Rate 17 20 Respiratory Effort / Characteristics Non-Labored Spontaneous Respiratory Depth Normal Respiratory Pattern Regular Blood Pressure 153/88 H 148/72 H Blood Pressure [Right Arm] 148/72 H Blood Pressure Mean 109 88 Blood Pressure Mean [Right Arm] 97 Pulse Oximetry 92 93 Oxygen Delivery Method Room Air Room Air Oxygen Flow Rate Sepsis Recent Fever Within 48 Hours Sepsis New/Unexplained Change in Mental Status Sepsis Action Taken by Nursing Oxygen Flow Rate - Titration Pulse Oximetry Post Tiitration 04/19/24 23:43 04/20/24 00:00 04/20/24 00:30 Temperature Temperature Source Pulse Rate 92 H 89 Pulse Rate [Apical] Pulse Rate from SpO2 Sensor Pulse Rhythm Pulse Rhythm [Apical] Respiratory Rate 20 19 Respiratory Effort / Characteristics Non-Labored Spontaneous Respiratory Depth Normal Respiratory Pattern Blood Pressure 142/74 H 110/67 Blood Pressure [Right Arm] Blood Pressure Mean 80 88 Blood Pressure Mean [Right Arm] Pulse Oximetry 91 91 Oxygen Delivery Method Room Air Room Air Oxygen Flow Rate Sepsis Recent Fever Within 48 Hours Sepsis New/Unexplained Change in Mental Status Sepsis Action Taken by Nursing Oxygen Flow Rate - Titration Pulse Oximetry Post Tiitration 04/20/24 01:00 04/20/24 01:00 04/20/24 01:00 Temperature 37.6 C H Temperature Source Oral Pulse Rate 80 Pulse Rate [Apical] 85 Pulse Rate from SpO2 Sensor 81 Pulse Rhythm Pulse Rhythm [Apical] Regular Respiratory Rate 22 18 Respiratory Effort / Characteristics Non-Labored Spontaneous Respiratory Depth Normal Respiratory Pattern Regular Blood Pressure 108/56 L Blood Pressure [Right Arm] 108/56 L Blood Pressure Mean 73 Blood Pressure Mean [Right Arm] 73 Pulse Oximetry 93 88 L 91 Oxygen Delivery Method Nasal Cannula Nasal Cannula Nasal Cannula Oxygen Flow Rate 2 0 2 Sepsis Recent Fever Within 48 Hours Sepsis New/Unexplained Change in Mental Status Sepsis Action Taken by Nursing Oxygen Flow Rate - Titration 2 Pulse Oximetry Post Tiitration 93 04/20/24 01:30 04/20/24 03:00 Temperature Temperature Source Pulse Rate 82 Pulse Rate [Apical] 71 Pulse Rate from SpO2 Sensor Pulse Rhythm Pulse Rhythm [Apical] Regular Respiratory Rate 20 17 Respiratory Effort / Characteristics Non-Labored Spontaneous Respiratory Depth Normal Respiratory Pattern Regular Blood Pressure 104/55 L Blood Pressure [Right Arm] 120/51 L Blood Pressure Mean 76 Blood Pressure Mean [Right Arm] 74 Pulse Oximetry 92 95 Oxygen Delivery Method Nasal Cannula Nasal Cannula Oxygen Flow Rate 2 2 Sepsis Recent Fever Within 48 Hours Sepsis New/Unexplained Change in Mental Status Sepsis Action Taken by Nursing Oxygen Flow Rate - Titration Pulse Oximetry Post Tiitration Home Medications Current Medication List: was personally reviewed by al Laboratory Data Attestation: I reviewed the patient's lab results. 04/19/24 23:25 04/19/24 23:25 Lab Results 04/19/24 04/19/24 04/19/24 Range/Units 23:25 23:34 23:35 WBC 15.23 H (4.8-10.8) K/ul RBC 4.28 L (4.70-6.10) M/uL Hgb 12.9 L (14.0-18.0) g/dl Hct 37.9 L (42.0-52.0) % MCV 88.6 (80.0-100.0) fL MCH 30.1 (25.0-34.0) pg MCHC 34.0 (32.0-36.0) g/dL RDW Std Deviation 42.0 (36.4-46.3) fL RDW Coeff of Ariane 12.9 (11.5-14.5) % Plt Count 174 (130-400) K/uL MPV 11.4 (9.4-12.4) fL Immature Gran % (Auto) 1.0 % Neut % (Auto) 75.4 % Lymph % (Auto) 13.1 % Grainger % (Auto) 10.2 % Eos % (Auto) 0.1 % Baso % (Auto) 0.2 % Neut # (Auto) 11.48 H (1.40-6.50) K/uL Lymph # (Auto) 2.00 (1.20-3.40) K/uL Grainger # (Auto) 1.56 H (0.11-0.59) K/uL Eos # (Auto) 0.01 (0.00-0.50) K/uL Baso # (Auto) 0.03 (0.00-0.20) K/uL Immature Gran # (Auto) 0.15 (0.01-0.20) K/uL Sodium 132 L (136-145) mmol/L Potassium 3.5 (3.5-5.1) mmol/L Chloride 99 (98-107) mmol/L Carbon Dioxide 26 (21-32) mmol/L Anion Gap 7 (3-11) BUN 31 H (6-23) mg/dl Creatinine 1.94 H (0.6-1.4) mg/dl Est Cr Clr Drug Dosing 46.9 ml/min eGFR 38.18 BUN/Creatinine Ratio 16.0 (10-20) Glucose 130 H (70-99(Fasting)) mg/dl Lactate (0.4-2.0) mmol/L Calcium 9.2 (8.6-10.3) mg/dl Total Bilirubin 0.7 (0.2-1.0) mg/dl AST 31 (13-39) U/L ALT 30 (7-52) U/L Alkaline Phosphatase 65 (34-104) U/L Troponin I High Sens 15.5 (0-20) pg/ml Total Protein 8.5 H (6.0-8.3) gm/dl Albumin 3.8 (3.4-5.0) gm/dl Globulin 4.7 H (2.5-4.0) gm/dl Albumin/Globulin Ratio 0.8 L (0.9-2) Lipase 27 (11-82) U/L Procalcitonin 1.15 H (0-0.5) ng/ml Adenovirus (PCR) Not Detected (NotDetected) B. pertussis DNA (PCR) Not Detected (NotDetected) B.parapertussis DNA PCR Not Detected (NotDetected) C. pneumoniae DNA (PCR) Not Detected (NotDetected) Coronavirus OC43 (PCR) Not Detected (NotDetected) Coronavirus HKU1 (PCR) Not Detected (NotDetected) Coronavirus 229E (PCR) Not Detected (NotDetected) SARS-CoV-2 (PCR) Not Detected (NotDetected) Coronavirus NL63 (PCR) Not Detected (NotDetected) Human Metapneumovir PCR Not Detected (NotDetected) Influenza Type A (PCR) Not Detected (NotDetected) Influenza Type B (PCR) Not Detected (NotDetected) M. pneumoniae (PCR) Not Detected (NotDetected) Parainfluenza 1 (PCR) Not Detected (NotDetected) Parainfluenza 2 (PCR) Not Detected (NotDetected) Parainfluenza 3 (PCR) Not Detected (NotDetected) Parainfluenza 4 (PCR) Not Detected (NotDetected) RSV (PCR) Not Detected (NotDetected) Entero/Rhino (PCR) Not Detected (NotDetected) 04/20/24 Range/Units 01:44 WBC (4.8-10.8) K/ul RBC (4.70-6.10) M/uL Hgb (14.0-18.0) g/dl Hct (42.0-52.0) % MCV (80.0-100.0) fL MCH (25.0-34.0) pg MCHC (32.0-36.0) g/dL RDW Std Deviation (36.4-46.3) fL RDW Coeff of Ariane (11.5-14.5) % Plt Count (130-400) K/uL MPV (9.4-12.4) fL Immature Gran % (Auto) % Neut % (Auto) % Lymph % (Auto) % Grainger % (Auto) % Eos % (Auto) % Baso % (Auto) % Neut # (Auto) (1.40-6.50) K/uL Lymph # (Auto) (1.20-3.40) K/uL Grainger # (Auto) (0.11-0.59) K/uL Eos # (Auto) (0.00-0.50) K/uL Baso # (Auto) (0.00-0.20) K/uL Immature Gran # (Auto) (0.01-0.20) K/uL Sodium (136-145) mmol/L Potassium (3.5-5.1) mmol/L Chloride (98-107) mmol/L Carbon Dioxide (21-32) mmol/L Anion Gap (3-11) BUN (6-23) mg/dl Creatinine (0.6-1.4) mg/dl Est Cr Clr Drug Dosing ml/min eGFR BUN/Creatinine Ratio (10-20) Glucose (70-99(Fasting)) mg/dl Lactate 0.9 (0.4-2.0) mmol/L Calcium (8.6-10.3) mg/dl Total Bilirubin (0.2-1.0) mg/dl AST (13-39) U/L ALT (7-52) U/L Alkaline Phosphatase (34-104) U/L Troponin I High Sens (0-20) pg/ml Total Protein (6.0-8.3) gm/dl Albumin (3.4-5.0) gm/dl Globulin (2.5-4.0) gm/dl Albumin/Globulin Ratio (0.9-2) Lipase (11-82) U/L Procalcitonin (0-0.5) ng/ml Adenovirus (PCR) (NotDetected) B. pertussis DNA (PCR) (NotDetected) B.parapertussis DNA PCR (NotDetected) C. pneumoniae DNA (PCR) (NotDetected) Coronavirus OC43 (PCR) (NotDetected) Coronavirus HKU1 (PCR) (NotDetected) Coronavirus 229E (PCR) (NotDetected) SARS-CoV-2 (PCR) (NotDetected) Coronavirus NL63 (PCR) (NotDetected) Human Metapneumovir PCR (NotDetected) Influenza Type A (PCR) (NotDetected) Influenza Type B (PCR) (NotDetected) M. pneumoniae (PCR) (NotDetected) Parainfluenza 1 (PCR) (NotDetected) Parainfluenza 2 (PCR) (NotDetected) Parainfluenza 3 (PCR) (NotDetected) Parainfluenza 4 (PCR) (NotDetected) RSV (PCR) (NotDetected) Entero/Rhino (PCR) (NotDetected) Administered Medications Discontinued Medications Sodium Chloride (Nss) 1,000 mls @ 999 mls/hr IV .Q1H1M ONE Stop: 04/20/24 00:25 Last Infusion: 04/20/24 00:15 Dose: Infused Documented By: Admin: 04/19/24 23:35 Dose: 999 mls/hr Documented By: DARLENE Acetaminophen (Ofirmev) 1,000 mg in 100 mls @ 400 mls/hr IV NOW STA Stop: 04/19/24 23:39 Last Infusion: 04/19/24 23:50 Dose: Infused Documented By: Admin: 04/19/24 23:35 Dose: 400 mls/hr Documented By: DARLENE Piperacillin Sod/Tazobactam Sod (Zosyn) 4.5 gm in 100 mls @ 200 mls/hr IV NOW ONE; Protocol Stop: 04/20/24 01:59 Last Infusion: 04/20/24 02:45 Dose: Infused Documented By: Admin: 04/20/24 02:11 Dose: 200 mls/hr Documented By: DARLENE Ioversol (Optiray 320 100ml) 100 ml IV ONCE ONE Stop: 04/20/24 02:20 Last Admin: 04/20/24 02:19 Dose: 93 ml Documented By: GAVIOTA Imaging Data Attestation: I personally reviewed and interpreted this imaging study as follows: Radiologist's Impression: Chest X-Ray 04/19/24 23:25 EXAM: XR chest 1V portable CLINICAL HISTORY: Chest pain, nonspecific. TECHNIQUE: An X-ray image of the chest is obtained in AP projection. COMPARISON: 07/22/2023 CT. FINDINGS: Pulmonary Parenchyma: Right mid zone consolidation with sharp inferior edge, likely the minor fissure. Suspected patchy bilateral lower zone opacities. No evidence of pleural effusion or pleural thickening. Heart and Mediastinum: Unremarkable heart size for an AP projection. Prominent right hilar shadow. No mediastinal masses. Bony Thorax: Internal fixation of the lower cervical levels. Degenerative changes of the visualized skeleton. Soft Tissues: Evidence of a spinal cord stimulator. IMPRESSION: 1. Right mid zone consolidative opacity limited by the minor fissure. Clinical correlation is advised to assess for pneumonic infiltration. (New finding) 2. Suspected patchy lower zone opacities. (New finding) 3. No other significant interval change since the previous study. Electronically signed by Sujatha Jose 04-20-2024 01:[address] 04/20/24 01:26 EXAM: CT chest diagnostic w con CLINICAL HISTORY: pneumonic infiltration. TECHNIQUE: Contiguous 3.[address] images of the chest were acquired with the administration of intravenous contrast. Coronal and sagittal reconstructions were obtained. 93 ml OPTIRAY 320was administered for post-contrast images. One of the following dose reduction techniques were utilized for this exam: Automated exposure control, adjustment of the mA and/or kV according to patient size, and use of iterative reconstruction COMPARISON: CR 04/19/2024. FINDINGS: Lungs: Right upper lobe anterior segment air space subsegmental consolidation extending from the hilum level to the peripheral pleura, limited with the minor fissure. Left lower lobe, focal atelectatic band. No ground-glass opacities or interstitial changes. No pleural effusion or pleural thickening. Mediastinum: No mediastinal mass . Enlarged reactive looking right paratracheal lymph nodes, the largest measuring 11 x 8 mm. Hilar Structures: Enlarged right hilar lymph node. Heart and Great Vessels: Normal heart size and configuration. No pericardial effusion. Normal caliber and course of the thoracic aorta and other great vessels. Mild aortic atherosclerosis, no aneurysm. Normal enhancement of the great vessels post-contrast. Pulmonary Arteries: No evidence of pulmonary embolism. Normal size and course of the pulmonary arteries. Esophagus: Normal course and caliber. No masses or dilatation. Bones: Spondylotic changes. Lower cervical anterior fusion surgery. Lower thoracic spine posterior spinal canal metallic device. No fractures or lytic/sclerotic lesions. Normal bone density and alignment. No evidence of rib fractures. Chest Wall: No masses or soft tissue abnormalities. Upper Abdomen: Visualized portions of the liver, spleen, pancreas, adrenal glands, and kidneys are normal. No abnormalities noted in the visualized upper abdominal organs. Thyroid: Normal size and morphology. No nodules or masses. IMPRESSION: - Right upper lobe sub-segmental consolidation, suggesting acute pneumonia, as noted with previous CR, needs clinical/lab correlation. - Few reactive looking small mediastinal lymph nodes. Electronically signed by Sujatha Jose 04-20-2024 03:46 AM Discharge Plan Visit Data Chief Complaint: Chest Pain Stated Complaint: BACK/CHEST PAIN ED Provider: Kathleen Peoples ED Midlevel Provider: Rose Clayton Discharge Problem: Pneumonia, RAJIV (acute kidney injury), Hypoxia
[2024-04-19] MEDS: SODIUM CHLORIDE 0.9% 1,000 ML IV ONE (23:35)
[2024-04-19] MEDS: ACETAMINOPHEN 1,000 MG/100 ML VIAL IV STA (23:35)
[2024-04-20 00:01] LABS: Basophils # (auto) 0.03 K/uL (0.00-0.20); Basophils % (auto) 0.2 %; Eosinophils # (auto) 0.01 K/uL (0.00-0.50); Eosinophils % (auto) 0.1 %; Hematocrit (blood only) 37.9 % (42.0-52.0); Hemoglobin 12.9 g/dl (14.0-18.0); Immature Granulocytes # (auto) 0.15 K/uL (0.01-0.20); Lymphocytes % (auto) 13.1 %; Mean Corpuscular Hemoglobin 30.1 pg (25.0-34.0); Mean Corpuscular Volume 88.6 fL (80.0-100.0); Mean Platelet Volume 11.4 fL (9.4-12.4); Monocytes # (auto) 1.56 K/uL (0.11-0.59); Monocytes % (auto) 10.2 %; Neutrophils # (auto) 11.48 K/uL (1.40-6.50); Neutrophils % (auto) 75.4 %; Platelet Count 174 K/uL (130-400); RDW Coefficient of Variation 12.9 % (11.5-14.5); Red Blood Count 4.28 M/uL (4.70-6.10); White Blood Count 15.23 K/ul (4.8-10.8)
[2024-04-20 00:11] LABS: Albumin Globulin Ratio 0.8 (0.9-2); Albumin Level 3.8 gm/dl (3.4-5.0); Bilirubin,Total 0.7 mg/dl (0.2-1.0); Calcium 9.2 mg/dl (8.6-10.3); Creatinine Clr Calc Pharmacy 46.9 ml/min; Globulin 4.7 gm/dl (2.5-4.0); Potassium 3.5 mmol/L (3.5-5.1); Total Protein 8.5 gm/dl (6.0-8.3)
[2024-04-20 00:17] LABS: Troponin I High Sensitivity 15.5 pg/ml (0-20)
[2024-04-20 00:33] LABS: Adenovirus PCR Not Detected (NotDetected); Bordetella parapertussis PCR Not Detected (NotDetected); Bordetella pertussis PCR Not Detected (NotDetected); Chlamydia pneumoniae PCR Not Detected (NotDetected); Coronavirus 229E PCR Not Detected (NotDetected); Coronavirus CoV-2 (COVID19)PCR Not Detected (NotDetected); Coronavirus HKU1 PCR Not Detected (NotDetected); Coronavirus NL63 PCR Not Detected (NotDetected); Coronavirus OC43PCR Not Detected (NotDetected); Human Metapneumovirus PCR Not Detected (NotDetected); Influenza A PCR Not Detected (NotDetected); Influenza B PCR Not Detected (NotDetected); Mycoplasma pneumoniae PCR Not Detected (NotDetected); Parainfluenza Virus 1 PCR Not Detected (NotDetected); Parainfluenza Virus 2 PCR Not Detected (NotDetected); Parainfluenza Virus 3 PCR Not Detected (NotDetected); Parainfluenza Virus 4 PCR Not Detected (NotDetected); Respiratory Syncytial VirusPCR Not Detected (NotDetected); Rhinovirus/Enterovirus PCR Not Detected (NotDetected)
--- NOTE | 2024-04-20 01:06 | XRay Report ---
EXAM: XR chest 1V portable CLINICAL HISTORY: Chest pain, nonspecific. TECHNIQUE: An X-ray image of the chest is obtained in AP projection. COMPARISON: 07/22/2023 CT. FINDINGS: Pulmonary Parenchyma: Right mid zone consolidation with sharp inferior edge, likely the minor fissure. Suspected patchy bilateral lower zone opacities. No evidence of pleural effusion or pleural thickening. Heart and Mediastinum: Unremarkable heart size for an AP projection. Prominent right hilar shadow. No mediastinal masses. Bony Thorax: Internal fixation of the lower cervical levels. Degenerative changes of the visualized skeleton. Soft Tissues: Evidence of a spinal cord stimulator. IMPRESSION: 1. Right mid zone consolidative opacity limited by the minor fissure. Clinical correlation is advised to assess for pneumonic infiltration. (New finding) 2. Suspected patchy lower zone opacities. (New finding) 3. No other significant interval change since the previous study. Electronically signed by Sujatha Jose 04-20-2024 01:06 AM
[2024-04-20] MEDS: PIPERACILLIN/TAZOBACTAM 4.5 GM/100 ML BAG IV ONE (02:11)
[2024-04-20] MEDS: OPTIRAY 320 100ml IV ONE (02:19)
--- NOTE | 2024-04-20 03:47 | CT Scan Report ---
EXAM: CT chest diagnostic w con CLINICAL HISTORY: pneumonic infiltration. TECHNIQUE: Contiguous 3.[address] images of the chest were acquired with the administration of intravenous contrast. Coronal and sagittal reconstructions were obtained. 93 ml OPTIRAY 320was administered for post-contrast images. One of the following dose reduction techniques were utilized for this exam: Automated exposure control, adjustment of the mA and/or kV according to patient size, and use of iterative reconstruction COMPARISON: CR 04/19/2024. FINDINGS: Lungs: Right upper lobe anterior segment air space subsegmental consolidation extending from the hilum level to the peripheral pleura, limited with the minor fissure. Left lower lobe, focal atelectatic band. No ground-glass opacities or interstitial changes. No pleural effusion or pleural thickening. Mediastinum: No mediastinal mass . Enlarged reactive looking right paratracheal lymph nodes, the largest measuring 11 x 8 mm. Hilar Structures: Enlarged right hilar lymph node. Heart and Great Vessels: Normal heart size and configuration. No pericardial effusion. Normal caliber and course of the thoracic aorta and other great vessels. Mild aortic atherosclerosis, no aneurysm. Normal enhancement of the great vessels post-contrast. Pulmonary Arteries: No evidence of pulmonary embolism. Normal size and course of the pulmonary arteries. Esophagus: Normal course and caliber. No masses or dilatation. Bones: Spondylotic changes. Lower cervical anterior fusion surgery. Lower thoracic spine posterior spinal canal metallic device. No fractures or lytic/sclerotic lesions. Normal bone density and alignment. No evidence of rib fractures. Chest Wall: No masses or soft tissue abnormalities. Upper Abdomen: Visualized portions of the liver, spleen, pancreas, adrenal glands, and kidneys are normal. No abnormalities noted in the visualized upper abdominal organs. Thyroid: Normal size and morphology. No nodules or masses. IMPRESSION: - Right upper lobe sub-segmental consolidation, suggesting acute pneumonia, as noted with previous CR, needs clinical/lab correlation. - Few reactive looking small mediastinal lymph nodes. Electronically signed by Sujatha Jose 04-20-2024 03:46 AM
--- NOTE | 2024-04-20 03:56 | History & Physical Report ---
Date of Service April 20, 2024 Assessment & Plan (1) Pneumonia: (2) RAJIV (acute kidney injury): (3) Hyponatremia: Plan 64-year-old male PMHx HTN, dyslipidemia, lumbar stenosis, alcohol abuse, and tobacco abuse presenting for right-sided chest pain x 3 weeks. ED evaluation reveals leukocytosis 15.23, H&H 12.9/37.9, sodium 132, creatinine 1.94, BUN 31, lactate 0.9, troponin 15.5, pending repeat, Pro-Viet 1.15; BioFire negative; CXR with R mid zone consolidative opacity, suspected patchy lower zone opacities; chest CT RUL subsegmental consolidation suggestive of acute pneumonia, few reactive looking small mediastinal lymph nodes; EKG NSR at 97 bpm. #RUL PNA/chest pain Sx of chest pain x 3 weeks, resulting in discomfort and inability to sleep. Smokes approximately 1 pack/day at baseline; did not receive pneumonia or COVID vaccines but otherwise up-to-date. Cardiology note 01/05/2024 with mention of atypical chest pain, patient states is worse on his L side and recurrent but that the pain he is feeling now is different and located on the R side. Suspect the majority of the chest pain secondary to PNA as compared to ACS. - CBC leukocytosis 15.23; CMP sodium 132, creatinine 1.94, BUN 31; lactate 0.9; procalcitonin 1.15 - CBC a.m. - CXR are midzone consolidative opacity, suspected patchy lower zone opacities; chest CT revealing RUL subsegmental consolidation suggestive of acute pneumonia, few reactive looking small mediastinal lymph nodes - Troponin 15.5, pending repeat; EKG sinus rhythm, rate in the 90s - Sputum culture if patient able to provide sample - O2 via NC to maintain 98%, No O2 at baseline; FV + IC - Tylenol prn fever/pain - Ceftriaxone + Azithro - continue #RAJIV Likely secondary to renal hypoperfusion ; poor oral intake ~ 2-3 weeks as reported by patient. Received 1L NSS in ED. - Cr 1.94, BUN 31; UA pending- BMP a.m. - Post void bladder scan pending; bladder scan as needed - IVF LR @ 100 mL/hr x 1 L #Hyponatremia Likely secondary to poor intake; associated RAJIV as above; asymptomatic - Na 132, glucose 130; corrected 133- BMP a.m. - LR @ 100 mL/hr x 1 L Dispo: Admit, med/sx VTE prophylaxis: Heparin This document was dictated utilizing Air Button. Please excuse any grammatical errors that may be secondary to use of this software. Admission and Anticipated Discharge Date Admission Date: 04/20/2024 History of Present Illness Chief Complaint: Chest pain Primary Care Provider: Mela Newby 64-year-old male PMHx HTN, dyslipidemia, lumbar stenosis, alcohol abuse, and tobacco abuse presenting for right-sided chest pain x 3 weeks. States that the reason he arrived now instead of 3 weeks ago was because he could not take it anymore and could not sleep given the pain and discomfort. Approximately 3 weeks ago, patient started to have R sided chest pain located just below R breast. Described as sharp overall rather constant, but severity does change. At its maximum, pain is a 10 out of 10 on the pain scale, but at the time of visit pain is approximately 6 out of 10 on the pain scale. Patient states that he has had a cough for the past 3 weeks which has been nonproductive. He does feel feverish but did not take his temperature. No URI symptoms otherwise. Patient admits to smoking 1 pack/day but has not smoked any cigarettes over the past 3 to 4 days because it causes him to cough too much. Additionally, patient tends to drink 8-10 beers per day, but has not done so because he has felt so ill. Admits to anorexia. Denying SOB, abdominal pain, N/V/D/C, numbness/tingling, LUTS, headache, dizziness, or syncope. Patient is unsure if he has had sick contacts. ED evaluation reveals leukocytosis 15.23, H&H 12.9/37.9, sodium 132, creatinine 1.94, BUN 31, lactate 0.9, troponin 15.5, pending repeat, Pro-Viet 1.15; BioFire negative; CXR with R mid zone consolidative opacity, suspected patchy lower zone opacities; chest CT RUL subsegmental consolidation suggestive of acute pneumonia, few reactive looking small mediastinal lymph nodes; EKG NSR at [address] Salas's attestation for adjustments/additions to treatment plan. Allergies Allergy/AdvReac Type Severity Reaction Status Date / Time Egg Derived AdvReac Unknown GI UPSET Verified 01/05/24 10:49 Home Medications Medication Instructions Recorded Confirmed Type acetaminophen 500 mg tablet 1,000 mg PO Q6H PRN Pain 08/25/18 04/20/24 History (Tylenol Extra Strength) omeprazole 20 mg tablet,delayed 20 mg PO QAM 08/25/18 04/20/24 History release tamsulosin 0.4 mg capsule 0.4 mg PO QAM 08/25/18 04/20/24 History methocarbamol 500 mg tablet 500 mg PO TID 11/04/20 04/20/24 History aspirin 81 mg tablet,delayed 81 mg PO QAM 01/16/21 04/20/24 History release cholecalciferol (vitamin D3) 50 2,000 unit PO QAM 01/16/21 01/05/24 History mcg (2,000 unit) capsule (Vitamin D3) varenicline tartrate 1 mg tablet 1 mg PO BID 01/16/21 04/20/24 History metoprolol succinate 25 mg 25 mg PO QAM #90 tabs 08/31/23 04/20/24 Rx tablet,extended release 24 hr amlodipine 5 mg tablet 5 mg PO DAILY #90 tabs 11/15/23 04/20/24 Rx pregabalin 100 mg capsule (Lyrica) 100 mg PO TID 11/15/23 01/05/24 History atorvastatin 40 mg tablet 80 mg PO QAM 01/05/24 04/20/24 History lisinopril 20 mg tablet 40 mg PO QAM 01/05/24 04/20/24 History Past Med/Surg History Problem List Hypoxia (Acute) Hyponatremia RAJIV (acute kidney injury) (Acute) Pneumonia (Acute) Alcohol abuse Tobacco abuse Hypertension (Acute) Dyslipidemia (Acute) Lumbar stenosis with neurogenic claudication Tendon laceration (Acute) Encounter for pre-operative examination Cervical stenosis of spinal canal Lumbosacral radiculopathy Chest pain COVID-19 (Acute) Coronary artery calcification follows with [facility] Medical History Fatty liver Obesity Arthritis BPH (benign prostatic hyperplasia) GERD (gastroesophageal reflux disease) Chronic obstructive pulmonary disease BORDERLINE-NO INHALERS Hyperlipidemia Hypertension Surgical History S/P insertion of spinal cord stimulator History of colonoscopy S/P debridement ANKLE H/O elbow surgery LEFT ULNAR NERVE History of arthroscopy KNEE Fusion of spine LUMBAR Fusion of spine CERVICAL; limited ROM up/down & side to side Family History Brother Family history of diabetes mellitus Brother Family history of diabetes mellitus Mother Family history of diabetes mellitus Social History Smoking Status: Current some day smoker Tobacco Type: Cigarettes Cigarettes Per Day: 10; Second Hand Exposure: Yes; Do You Dip or Chew Tobacco: No; Hx Alcohol Use: Yes Alcohol type: beer Hx Substance Use: No Preferred Language: Bulgarian Communication Ability: Effective Station Engineer Required: No Beliefs That Will Affect Care: None marital status: Current Living Situation: Spouse and Family Feels Safe at Home: Yes Assistive Devices: Glasses Review of Systems Review of Systems: All systems reviewed & are unremarkable except as noted in Subjective Physical Exam Physical Exam: General: No acute distress Skin: Warm and dry, without rashes or lesions Head: Normocephalic, atraumatic Eyes: PERRL, conjunctivae clear, sclera non-icteric ENT: External ear and ear canal without swelling; nose atraumatic; good dentition, tongue normal appearance, pharynx normal Neck: Supple, no LAD Cardio: RRR, no M/G/R, S1 and S2 normal Resp: No respiratory distress; no wheezing, faint crackles R lung fitch; utilizing O2 via NC (not at baseline) Abdomen: Soft, symmetric, nontender; No masses or hepatosplenomegaly; Bowel sounds normoactive MSK: No deformities; pulses palpable and equal; no edema. Neuro: Awake, alert; CN grossly intact Psych: Appropriate mood and affect; good judgement and insight. Results & Data Results & Data Vital Signs (Past 12 Hours) Vital Signs Temp Pulse Pulse Resp BP BP Pulse Ox 04/20/24 03:00 71 17 120/51 L 95 04/20/24 01:30 82 20 104/55 L 92 04/20/24 01:00 80 18 108/56 L 91 04/20/24 01:00 88 L 03/06/25 01:00 37.6 C H 85 22 108/56 L 93 04/20/24 00:30 89 19 110/67 91 04/20/24 00:00 92 H 20 142/74 H 91 04/19/24 23:41 96 H 20 148/72 H 93 04/19/24 23:36 148/72 H 04/19/24 23:30 99 H 17 153/88 H 92 04/19/24 23:30 97 H 04/19/24 23:25 96 H 18 92 04/19/24 23:15 39.5 C H 103 H 24 143/74 H 93 O2 Del Method O2 Flow Rate 04/20/24 03:00 Nasal Cannula 2 04/20/24 01:30 Nasal Cannula 2 04/20/24 01:00 Nasal Cannula 2 04/20/24 01:00 Nasal Cannula 0 04/20/24 01:00 Nasal Cannula 2 04/20/24 00:30 Room Air 04/20/24 00:00 Room Air 04/19/24 23:41 Room Air 04/19/24 23:36 04/19/24 23:30 Room Air 04/19/24 23:30 04/19/24 23:25 Room Air 04/19/24 23:15 Room Air Laboratory Results 04/20/24 01:44 Aerobic Blood Culture - Pending Blood Anaerobic Blood Culture - Pending 04/20/24 01:44 Aerobic Blood Culture - Pending Blood Anaerobic Blood Culture - Pending 04/20/24 04/19/24 04/19/24 01:44 23:35 23:34 WBC RBC Hgb Hct MCV MCH MCHC RDW Std Deviation RDW Coeff of Ariane Plt Count MPV Immature Gran % (Auto) Neut % (Auto) Lymph % (Auto) [place] % (Auto) Eos % (Auto) Baso % (Auto) Neut # (Auto) Lymph # (Auto) [place] # (Auto) Eos # (Auto) Baso # (Auto) Immature Gran # (Auto) Sodium Potassium Chloride Carbon Dioxide Anion Gap BUN Creatinine Est Cr Clr Drug Dosing eGFR BUN/Creatinine Ratio Glucose Lactate 0.9 Calcium Total Bilirubin AST ALT Alkaline Phosphatase Troponin I High Sens Total Protein Albumin Globulin Albumin/Globulin Ratio Lipase Procalcitonin 1.15 H Adenovirus (PCR) Not Detected B. pertussis DNA (PCR) Not Detected B.parapertussis DNA PCR Not Detected C. pneumoniae DNA (PCR) Not Detected Coronavirus OC43 (PCR) Not Detected Coronavirus HKU1 (PCR) Not Detected Coronavirus 229E (PCR) Not Detected SARS-CoV-2 (PCR) Not Detected Coronavirus NL63 (PCR) Not Detected Human Metapneumovir PCR Not Detected Influenza Type A (PCR) Not Detected Influenza Type B (PCR) Not Detected M. pneumoniae (PCR) Not Detected Parainfluenza 1 (PCR) Not Detected Parainfluenza 2 (PCR) Not Detected Parainfluenza 3 (PCR) Not Detected Parainfluenza 4 (PCR) Not Detected RSV (PCR) Not Detected Entero/Rhino (PCR) Not Detected 04/19/24 23:25 WBC 15.23 H RBC 4.28 L Hgb 12.9 L Hct 37.9 L MCV 88.6 MCH 30.1 MCHC 34.0 RDW Std Deviation 42.0 RDW Coeff of Ariane 12.9 Plt Count 174 MPV 11.4 Immature Gran % (Auto) 1.0 Neut % (Auto) 75.4 Lymph % (Auto) 13.1 [place] % (Auto) 10.2 Eos % (Auto) 0.1 Baso % (Auto) 0.2 Neut # (Auto) 11.48 H Lymph # (Auto) 2.00 [place] # (Auto) 1.56 H Eos # (Auto) 0.01 Baso # (Auto) 0.03 Immature Gran # (Auto) 0.15 Sodium 132 L Potassium 3.5 Chloride 99 Carbon Dioxide 26 Anion Gap 7 BUN 31 H Creatinine 1.94 H Est Cr Clr Drug Dosing 46.9 eGFR 38.18 BUN/Creatinine Ratio 16.0 Glucose 130 H Lactate Calcium 9.2 Total Bilirubin 0.7 AST 31 ALT 30 Alkaline Phosphatase 65 Troponin I High Sens 15.5 Total Protein 8.5 H Albumin 3.8 Globulin 4.7 H Albumin/Globulin Ratio 0.8 L Lipase 27 Procalcitonin Adenovirus (PCR) B. pertussis DNA (PCR) B.parapertussis DNA PCR C. pneumoniae DNA (PCR) Coronavirus OC43 (PCR) Coronavirus HKU1 (PCR) Coronavirus 229E (PCR) SARS-CoV-2 (PCR) Coronavirus NL63 (PCR) Human Metapneumovir PCR Influenza Type A (PCR) Influenza Type B (PCR) M. pneumoniae (PCR) Parainfluenza 1 (PCR) Parainfluenza 2 (PCR) Parainfluenza 3 (PCR) Parainfluenza 4 (PCR) RSV (PCR) Entero/Rhino (PCR) Diagnostic Findings Chest X-Ray 04/19/24 23:25 EXAM: XR chest 1V portable CLINICAL HISTORY: Chest pain, nonspecific. TECHNIQUE: An X-ray image of the chest is obtained in AP projection. COMPARISON: 07/22/2023 CT. FINDINGS: Pulmonary Parenchyma: Right mid zone consolidation with sharp inferior edge, likely the minor fissure. Suspected patchy bilateral lower zone opacities. No evidence of pleural effusion or pleural thickening. Heart and Mediastinum: Unremarkable heart size for an AP projection. Prominent right hilar shadow. No mediastinal masses. Bony Thorax: Internal fixation of the lower cervical levels. Degenerative changes of the visualized skeleton. Soft Tissues: Evidence of a spinal cord stimulator. IMPRESSION: 1. Right mid zone consolidative opacity limited by the minor fissure. Clinical correlation is advised to assess for pneumonic infiltration. (New finding) 2. Suspected patchy lower zone opacities. (New finding) 3. No other significant interval change since the previous study. Electronically signed by Sujatha Jose 04-20-2024 01:[address] 04/20/24 01:26 EXAM: CT chest diagnostic w con CLINICAL HISTORY: pneumonic infiltration. TECHNIQUE: Contiguous 3.[address] images of the chest were acquired with the administration of intravenous contrast. Coronal and sagittal reconstructions were obtained. 93 ml OPTIRAY 320was administered for post-contrast images. One of the following dose reduction techniques were utilized for this exam: Automated exposure control, adjustment of the mA and/or kV according to patient size, and use of iterative reconstruction COMPARISON: CR 04/19/2024. FINDINGS: Lungs: Right upper lobe anterior segment air space subsegmental consolidation extending from the hilum level to the peripheral pleura, limited with the minor fissure. Left lower lobe, focal atelectatic band. No ground-glass opacities or interstitial changes. No pleural effusion or pleural thickening. Mediastinum: No mediastinal mass . Enlarged reactive looking right paratracheal lymph nodes, the largest measuring 11 x 8 mm. Hilar Structures: Enlarged right hilar lymph node. Heart and Great Vessels: Normal heart size and configuration. No pericardial effusion. Normal caliber and course of the thoracic aorta and other great vessels. Mild aortic atherosclerosis, no aneurysm. Normal enhancement of the great vessels post-contrast. Pulmonary Arteries: No evidence of pulmonary embolism. Normal size and course of the pulmonary arteries. Esophagus: Normal course and caliber. No masses or dilatation. Bones: Spondylotic changes. Lower cervical anterior fusion surgery. Lower thoracic spine posterior spinal canal metallic device. No fractures or lytic/sclerotic lesions. Normal bone density and alignment. No evidence of rib fractures. Chest Wall: No masses or soft tissue abnormalities. Upper Abdomen: Visualized portions of the liver, spleen, pancreas, adrenal glands, and kidneys are normal. No abnormalities noted in the visualized upper abdominal organs. Thyroid: Normal size and morphology. No nodules or masses. IMPRESSION: - Right upper lobe sub-segmental consolidation, suggesting acute pneumonia, as noted with previous CR, needs clinical/lab correlation. - Few reactive looking small mediastinal lymph nodes. Electronically signed by Sujatha Jose 04-20-2024 03:46 AM Medications Administered 1L NSS Zosyn 4.5 g IV Acetaminophen 1 g IV ECG Additional Comments: NSR, nonspecific ST abnormality 97 bpm, ID 152, QRS 102, QT/QTc 336/426, PRT 41/73/19 Code Status & VTE Plan Code Status DNR/DNI Supervising Physician Co-Signing Physician Notes Patient seen and examined, chart reviewed, case discussed with CHU Raymundo and I agree with the assessment and plan as above. In brief, patient is a 64yo male presenting with RUL PNA - pleuritic chest discomfort ongoing x 1 week. Hypoxic in the ER to 88% on RA - now doing well on 2L NC saturating 95% On exam he is sitting in bedside recliner, NAD Skin - no rash HEENT - MMM, Neck supple Heart - +S1/S2, regular, no m/r/g Lungs - +focal wheezing right mid-lung field anteriorly, faint crackles in right mid-lung posteriorly Abd - soft, NT/ND Ext - no edema Labs and images reviewed WBC=15.23 Oj=426, elevated BUN=31 and Cr=1.94 Procalcitonin=1.15 CT with right upper lobe sub-segmental consolidation Assessment/Plan 64yo male with RUL PNA, acute hypoxic respiratory failure on arrival requiring supplemental O2 -Ceftriaxone and Azithromycin for presumed CAP -IVF for RAJIV, monitor renal function -Remainder as above PG Care Time/CCT Total # of Minutes Spent Total Time Spent with Patient: Total time spent is greater than 50% in coordination of care (as documented) at patient's floor/unit and/or counseling patient: Coding Level of Care Code 71075 INT INP/OBS CARE 375MIN Diagnoses Pneumonia J18.9 RAJIV (acute kidney injury) N17.9 Hyponatremia E87.1
[2024-04-20] MEDS ORDERED: ACETAMINOPHEN 325 MG TAB PO PRN (04:12)
[2024-04-20] MEDS: LACTATED RINGER'S 1,000 ML IV STA (05:08)
[2024-04-20] MEDS ORDERED: POLYETHYLENE (MIRALAX) 17 GM PACK PO PRN (05:14)
[2024-04-20] MEDS ORDERED: ONDANSETRON INJ 2 MG/ML 2 ML VIAL IV PRN (05:14)
[2024-04-20] MEDS: cefTRIAXone SODIUM 2,000 MG/50 ML BAG IV STA (05:41)
--- NOTE | 2024-04-20 06:59 | Emergency Department Note ---
ED Visit Note I was consulted by the Advanced Practice Provider, GERA Giron. I performed a substantive portion of the visit. This includes aspects of: History: Patient is a 64-year-old male presenting with right-sided chest pain. He reports he has been having pain for the last 3 weeks. He states he is unable to sleep secondary to his pain. He has had shortness of breath. Also reports fevers, chills and bodyaches. Denies any DVT or PE history. MDM: - Laboratory workup interpreted by myself showed leukocytosis (WBC 15.23) with neutrophil predominance; slight hyponatremia (Na 132); RAJIV (Cr 1.94); normal lactate; elevated procalcitonin (1.15) - Blood cultures obtained - Viral respiratory panel negative. - CXR image reviewed by myself showed a linear opacity in the right midlung, per my interpretation. Radiology notes that the consolidation and recommended clinical correlation for pneumonic infiltration. - CT chest with IV contrast showed a right upper lobe subsegmental consolidation suggesting a pneumonia. - Patient given 1g IV tylenol for fever in ER. Given 1L NS and IV zosyn for antibiotic coverage. - Patient's sepsis fluid volume calculation based on ideal body weight is 2263.50 mL. He was given an additional 1L LR. - Patient became hypoxic while in the emergency department and was started on 2 L of supplemental oxygen. - Given patient's laboratory and imaging findings as well as his new oxygen requirement, will admit to hospitalist service. .
--- NOTE | 2024-04-20 07:08 | Hospitalist Progress Note ---
Date of Service April 20, 2024 Assessment & Plan (1) Pneumonia: (2) Chest pain: (3) Alcohol abuse: (4) Tobacco abuse: (5) RAJIV (acute kidney injury): (6) Hyponatremia: Plan 64-year-old male PMHx HTN, dyslipidemia, lumbar stenosis, alcohol abuse, and tobacco abuse presenting for right-sided chest pain x 3 weeks. Vitals upon arrival are BP 143/74, HR - 103, temp - 39.5 C, RR - 24. ED evaluation reveals leukocytosis 15.23, H&H 12.9/37.9, sodium 132, creatinine 1.94, lactate 0.9, troponin 15.5, pending repeat, Pro-Keeley 1.15; BioFire negative; CXR with R mid zone consolidative opacity, suspected patchy lower zone opacities; chest CT RUL subsegmental consolidation suggestive of acute pneumonia, few reactive looking small mediastinal lymph nodes; EKG NSR at 97 bpm. #RUL PNA Sx of fever, chills, pain upon inspiration 3 weeks, resulting in discomfort and inability to sleep. Patient smokes approximately 1 pack/day at baseline; did not receive pneumonia or COVID vaccines but otherwise up-to-date. Unproductive cough. Sick contacts - . Reports flu infection 1 month prior. Denies shortness of breath. Given hx of alcohol use, rule out aspiration pneumonia. Concerns of sepsis given elevated vitals. - CBC leukocytosis 15.23 - Pro-calcitonin 1.15 - CXR shows midzone consolidative opacity, suspected patchy lower zone opacities; chest CT revealing RUL subsegmental consolidation suggestive of acute pneumonia, few reactive looking small mediastinal lymph nodes - No O2 at baseline, O2 92-96 on 2L NC. - Tylenol prn fever/pain - speech therapy for concerns of aspiration - Continue Ceftriaxone + Azithro #Chest pain Chest pain is likely secondary to pneumonia -- costochondritis from coughing. Patient has a hx of atypical chest pain per cardiology note 01/05/2024. This atyical chest pain is usually mediastinal and not associated with inspiration. His current pain is right sided along the rib line, reproducible upon deep inspiration. - troponin trending down 15.5 -> 14.7 - lactate - 27 - EKG sinus rhythm with ST abnormality. Not significant when compared to prior EKG 09/2021. - trial Voltaren gel BID #RAJIV/hyponatremia Likely due to to renal hypoperfusion; poor oral intake ~ 2-3 weeks as reported by patient. Hyponatremia likely secondary to poor oral intake. - Cr 1.94 - Na 132 - IVF LR @ 100 mL/hr x 1 L #Hematuria UA showed trace blood in urine - f/u after discharge with PCP #AUD/TUD Interested in quitting. Typical alcohol use is 10 beers a day although due to sickness has only had 5 drinks across last 3 weeks with most recent drink being Wednesday. Typical tobacco use is 1 pack of cigarettes a day. - suggested talking to PCP Mela Newby Dispo: Admit, med/sx VTE prophylaxis: Heparin Admission and Anticipated Discharge Date Admission Date: April 20, 2024 Subjective Pt is a 64 yo male with a past medical history of coronary artery calcification, dyslipidemia, atypical chest painand AUD/TUD who presents to the hospital on 04/19 for a 3 week hx of chest pain upon inspiration. Patient was sick with the flu a month ago. Soon after resolution, he began feeling sick. Symptoms include non-productive coughing and significant chills which have not improved throughout the 3 weeks. Endorses possible fever. Temperature at home was 99, although he was feverish upon ED arrival. Denies SOB, congestion. Chest pain overlaps with illness and is reproducible upon inspiration and when coughing. He reports the pain as 10/10 but unsure if it's sharp or dull, only that it builds. The pain is intermittent. 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 AUD - 10 beers a day, only had 4-5 drinks the last 3 weeks combined, last drink was Wednesday. TUD - 1 pack a day, has stopped smoking last 3 weeks. Review of Systems Review of Systems: Constitutional: endorses fever, chills for the last 2-3 weeks. Denies unintended WL HEENT: denies congestion, sore throat Cardio: denies chest pain, tachycardia, palpitations Resp: denies shortness of breath. Endorses unproductive coughing GI: denies abdominal pain, nausea, vomiting, constipation, diarrhea, blood in stool : denies pain with urination, change in urinary frequency, blood in urine MSK: endorses muscle and joint pain Physical Exam Physical Exam: General:Alert and oriented. In no acute distress HEENT: Normocephalic, moist oral mucosa, no erythema Cardio: Regular rate and rhythm, no murmur, diminished heart sounds. Resp:Diminished lung sounds at bases. No rhonchi. Inspiratory wheeze. GI: Soft and nontender, nondistended, bowel sounds active Skin: Warm, pink, dry Psych: Mood-affect congruence. Results & Data Results & Data Vital Signs (Past 12 Hours) Vital Signs Temp Pulse Pulse Resp BP BP Pulse Ox 04/20/24 07:06 77 04/20/24 07:00 80 04/20/24 06:42 37.2 C 76 20 118/62 94 04/20/24 05:14 79 20 124/64 95 04/20/24 04:12 80 04/20/24 03:04 71 17 120/51 L 95 04/20/24 03:00 71 17 120/51 L 95 04/20/24 01:30 82 20 104/55 L 92 04/20/24 01:00 80 18 108/56 L 91 04/20/24 01:00 88 L 04/20/24 01:00 37.6 C H 85 22 108/56 L 93 04/20/24 00:30 89 19 110/67 91 04/20/24 00:00 92 H 20 142/74 H 91 04/19/24 23:41 96 H 20 148/72 H 93 04/19/24 23:36 148/72 H 04/19/24 23:30 99 H 17 153/88 H 92 04/19/24 23:30 97 H 04/19/24 23:25 96 H 18 92 04/19/24 23:15 39.5 C H 103 H 24 143/74 H 93 O2 Del Method O2 Flow Rate 04/20/24 07:06 04/20/24 07:00 04/20/24 06:42 Nasal Cannula 2 04/20/24 05:14 Nasal Cannula 2 04/20/24 04:12 04/20/24 03:04 Nasal Cannula 2 04/20/24 03:00 Nasal Cannula 2 04/20/24 01:30 Nasal Cannula 2 04/20/24 01:00 Nasal Cannula 2 04/20/24 01:00 Nasal Cannula 0 04/20/24 01:00 Nasal Cannula 2 04/20/24 00:30 Room Air 04/20/24 00:00 Room Air 04/19/24 23:41 Room Air 04/19/24 23:36 04/19/24 23:30 Room Air 04/19/24 23:30 04/19/24 23:25 Room Air 04/19/24 23:15 Room Air Laboratory Results Laboratory Results - last 24 hr 04/19/24 04/19/24 04/19/24 23:25 23:34 23:35 WBC 15.23 H RBC 4.28 L Hgb 12.9 L Hct 37.9 L MCV 88.6 MCH 30.1 MCHC 34.0 RDW Std Deviation 42.0 RDW Coeff of Ariane 12.9 Plt Count 174 MPV 11.4 Immature Gran % (Auto) 1.0 Neut % (Auto) 75.4 Lymph % (Auto) 13.1 Iron % (Auto) 10.2 Eos % (Auto) 0.1 Baso % (Auto) 0.2 Neut # (Auto) 11.48 H Lymph # (Auto) 2.00 Iron # (Auto) 1.56 H Eos # (Auto) 0.01 Baso # (Auto) 0.03 Immature Gran # (Auto) 0.15 Sodium 132 L Potassium 3.5 Chloride 99 Carbon Dioxide 26 Anion Gap 7 BUN 31 H Creatinine 1.94 H Est Cr Clr Drug Dosing 46.9 eGFR 38.18 BUN/Creatinine Ratio 16.0 Glucose 130 H Lactate Calcium 9.2 Total Bilirubin 0.7 AST 31 ALT 30 Alkaline Phosphatase 65 Troponin I High Sens 15.5 Total Protein 8.5 H Albumin 3.8 Globulin 4.7 H Albumin/Globulin Ratio 0.8 L Lipase 27 Procalcitonin 1.15 H Urine Color Urine Appearance Urine pH Ur Specific Crosby Urine Protein Urine Glucose (UA) Urine Ketones Urine Blood Urine Nitrite Urine Bilirubin Urine Urobilinogen Ur Leukocyte Esterase Urine WBC (Auto) Urine RBC (Auto) U Hyaline Cast (Auto) U Epithel Cells (Auto) Urine Bacteria (Auto) Adenovirus (PCR) Not Detected B. pertussis DNA (PCR) Not Detected B.parapertussis DNA PCR Not Detected C. pneumoniae DNA (PCR) Not Detected Coronavirus OC43 (PCR) Not Detected Coronavirus HKU1 (PCR) Not Detected Coronavirus 229E (PCR) Not Detected SARS-CoV-2 (PCR) Not Detected Coronavirus NL63 (PCR) Not Detected Human Metapneumovir PCR Not Detected Influenza Type A (PCR) Not Detected Influenza Type B (PCR) Not Detected M. pneumoniae (PCR) Not Detected Parainfluenza 1 (PCR) Not Detected Parainfluenza 2 (PCR) Not Detected Parainfluenza 3 (PCR) Not Detected Parainfluenza 4 (PCR) Not Detected RSV (PCR) Not Detected Entero/Rhino (PCR) Not Detected 04/20/24 04/20/24 04/20/24 01:44 04:51 08:10 WBC RBC Hgb Hct MCV MCH MCHC RDW Std Deviation RDW Coeff of Ariane Plt Count MPV Immature Gran % (Auto) Neut % (Auto) Lymph % (Auto) Iron % (Auto) Eos % (Auto) Baso % (Auto) Neut # (Auto) Lymph # (Auto) Iron # (Auto) Eos # (Auto) Baso # (Auto) Immature Gran # (Auto) Sodium Potassium Chloride Carbon Dioxide Anion Gap BUN Creatinine Est Cr Clr Drug Dosing eGFR BUN/Creatinine Ratio Glucose Lactate 0.9 Calcium Total Bilirubin AST ALT Alkaline Phosphatase Troponin I High Sens 14.7 Total Protein Albumin Globulin Albumin/Globulin Ratio Lipase Procalcitonin Urine Color Yellow Urine Appearance Clear Urine pH 5.5 Ur Specific Crosby > 1.045 H Urine Protein 2+ H Urine Glucose (UA) Negative Urine Ketones Negative Urine Blood Trace H Urine Nitrite Negative Urine Bilirubin Negative Urine Urobilinogen Negative Ur Leukocyte Esterase Negative Urine WBC (Auto) 0-5 Urine RBC (Auto) 0-2 U Hyaline Cast (Auto) 0-2 U Epithel Cells (Auto) 0-2 Urine Bacteria (Auto) None Seen Adenovirus (PCR) B. pertussis DNA (PCR) B.parapertussis DNA PCR C. pneumoniae DNA (PCR) Coronavirus OC43 (PCR) Coronavirus HKU1 (PCR) Coronavirus 229E (PCR) SARS-CoV-2 (PCR) Coronavirus NL63 (PCR) Human Metapneumovir PCR Influenza Type A (PCR) Influenza Type B (PCR) M. pneumoniae (PCR) Parainfluenza 1 (PCR) Parainfluenza 2 (PCR) Parainfluenza 3 (PCR) Parainfluenza 4 (PCR) RSV (PCR) Entero/Rhino (PCR) 04/20/24 08:36 WBC Pending RBC Pending Hgb Pending Hct Pending MCV Pending MCH Pending MCHC Pending RDW Std Deviation RDW Coeff of Ariane Plt Count Pending MPV Immature Gran % (Auto) Neut % (Auto) Lymph % (Auto) Iron % (Auto) Eos % (Auto) Baso % (Auto) Neut # (Auto) Lymph # (Auto) Iron # (Auto) Eos # (Auto) Baso # (Auto) Immature Gran # (Auto) Sodium Pending Potassium Pending Chloride Pending Carbon Dioxide Pending Anion Gap Pending BUN Pending Creatinine Pending Est Cr Clr Drug Dosing Pending eGFR Pending BUN/Creatinine Ratio Pending Glucose Pending Lactate Calcium Pending Total Bilirubin Pending AST Pending ALT Pending Alkaline Phosphatase Pending Troponin I High Sens Total Protein Pending Albumin Pending Globulin Pending Albumin/Globulin Ratio Pending Lipase Procalcitonin Urine Color Urine Appearance Urine pH Ur Specific Crosby Urine Protein Urine Glucose (UA) Urine Ketones Urine Blood Urine Nitrite Urine Bilirubin Urine Urobilinogen Ur Leukocyte Esterase Urine WBC (Auto) Urine RBC (Auto) U Hyaline Cast (Auto) U Epithel Cells (Auto) Urine Bacteria (Auto) Adenovirus (PCR) B. pertussis DNA (PCR) B.parapertussis DNA PCR C. pneumoniae DNA (PCR) Coronavirus OC43 (PCR) Coronavirus HKU1 (PCR) Coronavirus 229E (PCR) SARS-CoV-2 (PCR) Coronavirus NL63 (PCR) Human Metapneumovir PCR Influenza Type A (PCR) Influenza Type B (PCR) M. pneumoniae (PCR) Parainfluenza 1 (PCR) Parainfluenza 2 (PCR) Parainfluenza 3 (PCR) Parainfluenza 4 (PCR) RSV (PCR) Entero/Rhino (PCR) Of note: Elevated wbcs: 15.23 Mild anemia: 12.9 Troponin trending down 15.5 -> 14.7 Normal lipase: 27 High pro-keeley: 1.15 Creatinine: 1.94 Na - [address] with oral contrast - Right upper lobe sub-segmental consolidation, suggesting acute pneumonia, as noted with previous CR, needs clinical/lab correlation. - Few reactive looking small mediastinal lymph nodes. EKG - Sinus rhythm with ST abnormality but not significant compared to EKG from 09/2021 Resident Activity Tracking Resident Involvement: Resident Care Provided Care Provided: Adult Hospital Medicine Resident Supervision Co-Signing Physician Notes I have personally evaluated this patient and agree with assessment and plan noted by student doctor David with the exceptions/elaborations noted below: Pt states his pain started 3 weeks ago, had the flu recently and URI symptoms, cough for weeks. He states the pain would come and go and was R lower chest wall pain just under his R breast. He states the pain is worse with deep breaths. Pain is not worse with activity or relieved with rest. Trop unremarkable x2, EKG unremarkable. Osteopathic assessment includes 7th R rib exhalation dysfunction which aligns with area of tenderness. No hx blood clots. No SOB. Will trial voltaren gel BID. Pt noted to have R sided pneumonia. Currently treated with ceftriaxone and azithromycin. No prior COPD dx noted but pt does smoke 1 ppd. Given alcohol use will do speech eval for aspiration, although do not suspect this episode is aspiration. MRSA nares pending. Sputum cx pending. Flutter valve ordered. Pt has alcohol use 10 beer/day but less the last few weeks to 2-3 drinks a night with last drink on Wednesday. Pt looks well and feeling well other than pneumonia, so will continue to moniter. Cr is elevated so will hold home lisinopril for now. Hematuria noted. Pt should get f/u UA in a few weeks on hospital discharge. DVT ppx: heparin
--- NOTE | 2024-04-20 08:18 | Electrocardiogram Report ---
Test Reason : Blood Pressure : */* mmHG Vent. Rate : 97 BPM Atrial Rate : 97 BPM P-R Int : 152 ms QRS Dur : 102 ms QT Int : 336 ms P-R-T Axes : 41 73 19 degrees QTcB Int : 426 ms Normal sinus rhythm Nonspecific ST abnormality Anterolateral leads Nonspecific T wave abnormality Inferior leads Abnormal ECG When compared with ECG of 19-Sep-2021 19:44, No significant change was found Confirmed by Dmitri Benavidez ([id number] on 04/20/2024 8:18:30 AM Referred By: REFERRED SELF Confirmed By: Dmitri Benavidez
[2024-04-20] MEDS: ASPIRIN 81 MG ECTAB PO SCH (08:30)
[2024-04-20] MEDS: PREGABALIN 100 MG CAP PO SCH (08:31)
[2024-04-20] MEDS: amLODIPine BESYLATE 5 MG TAB PO SCH (08:31)
[2024-04-20] MEDS: TAMSULOSIN HCL 0.4 MG CAP PO SCH (08:31)
[2024-04-20] MEDS: METOPROLOL SUCC 25MG EXT REL TAB PO SCH (08:31)
[2024-04-20] MEDS: METHOCARBAMOL 500 MG TABLET PO SCH (08:32)
[2024-04-20] MEDS: lisinopril 40 MG TAB PO SCH (08:32)
[2024-04-20] MEDS: ATORVASTATIN 40 MG TAB PO SCH (08:32)
[2024-04-20] MEDS: PANTOprazole 40 MG TAB PO SCH (08:32)
[2024-04-20] MEDS: AZITHROMYCIN 250 MG TAB PO SCH (08:33)
[2024-04-20] MEDS: HEPARIN SOD 5,000 UNIT/0.5 ML VIAL SQ SCH (08:34)
[2024-04-20 08:41] LABS: Appearance Urine Clear (Clear); Bacteria Urine Automated None Seen (None Seen); Bilirubin Urine Negative (Negative); Blood Urine Trace (Negative); Cast Urine Automated 0-2 /lpf (0-2); Color Urine Yellow; Epithelial Cell Urine Auto 0-2 /hpf (0-2); Glucose Urine UA Negative (Negative); Ketones Urine Negative (Negative); Leukocyte Esterase Urine Negative (Negative); Nitrite Urine Negative (Negative); Protein Urine 2+ (Negative); RBC Urine Automated 0-2 /hpf (0-2); Specific Gravity Urine > 1.045 (1.000-1.030); Urobilinogen Urine Negative (Negative); WBC Urine Automated 0-5 /hpf (0-5); pH Urine 5.5 (4.5-7.5)
[2024-04-20 08:57] LABS: Basophils # (auto) 0.02 K/uL (0.00-0.20); Basophils % (auto) 0.1 %; Eosinophils # (auto) 0.01 K/uL (0.00-0.50); Eosinophils % (auto) 0.1 %; Hematocrit (blood only) 35.9 % (42.0-52.0); Immature Granulocytes % (auto) 0.7 %; Lymphocytes # (auto) 1.57 K/uL (1.20-3.40); Lymphocytes % (auto) 11.3 %; Mean Corpuscular Hemoglobin 29.8 pg (25.0-34.0); Mean Corpuscular Hgb Conc 33.4 g/dL (32.0-36.0); Mean Corpuscular Volume 89.1 fL (80.0-100.0); Mean Platelet Volume 10.7 fL (9.4-12.4); Monocytes # (auto) 1.12 K/uL (0.11-0.59); Monocytes % (auto) 8.1 %; Neutrophils # (auto) 11.09 K/uL (1.40-6.50); Neutrophils % (auto) 79.7 %; Platelet Count 173 K/uL (130-400); RDW Coefficient of Variation 13.1 % (11.5-14.5); RDW Standard Deviation 42.8 fL (36.4-46.3); Red Blood Count 4.03 M/uL (4.70-6.10); White Blood Count 13.91 K/ul (4.8-10.8)
[2024-04-20 09:16] LABS: Albumin Globulin Ratio 0.8 (0.9-2); Albumin Level 3.4 gm/dl (3.4-5.0); BUN Creatinine Ratio 18.1 (10-20); Bilirubin,Total 0.8 mg/dl (0.2-1.0); Calcium 8.6 mg/dl (8.6-10.3); Globulin 4.1 gm/dl (2.5-4.0); Potassium 3.4 mmol/L (3.5-5.1); Total Protein 7.5 gm/dl (6.0-8.3)
--- OUTSIDE RECORDS SUMMARY | 2024-04-20 10:28 | External Medical Summary | Continuity of Care Document ---
Author Name Unknown Organization [facility] [address] Address [address] [place], [place] [id number] Care Team Providers Care Senior Quality Technician Name Role Phone Mela Newby Primary Care Physician [phone] Encounter [facility] [id number] Date(s): 01/26/24 - 01/26/24 [facility] [address], [address] [place] [address] [phone] Encounter Diagnosis Atherosclerosis of chinik arteries of extremities with intermittent claudication, left leg(Discharge Diagnosis) - 01/26/24 Discharge Disposition: Home or Self Care Attending Physician: MD Mccullough Eugene J Referring Physician: GERA Newby Tara Allergies, Adverse Reactions, Alerts No Known Allergies Assessment and Plan Extracted from: Title:Clinical Document Author:DO Sinclair Andr ew Date:01/26/24 VASCULAR SURGERY OUTPATIENT NOTE Name: FARHAT PEDROZA Patient Number: [id number] : 1960 Date of Service: 01/26/2024 Chief Complaint: _ Asymptomatic carotid stenosis, PAD HPI: _ 63-year-old male with history significant for hypertension, hyperlipidemia, carotid stenosis, lumbar stenosis status post orthopedic procedure, presenting for evaluation of his asymptomatic carotid disease as well as abnormal ABIs. He reports low back pain with decreased sensation to the bilateral lower extremities for 6 to 8 years following his spine procedure. But otherwise denies burning or cramping to his lower extremities with ambulation. He does endorse cramping occasionally, approximately 1 time per month while laying in bed. He denies any recent difficulty with word finding or swallowing, vision changes or lateralizing motor or sensory deficit. He did recently undergo a carotid duplex that demonstrated 70 to 79% stenosis in the right ICA, and 60 to 69% stenosis in the left ICA. His TALON demonstrated triphasic waveforms in the right CARTON WAXING MACHINE OPERATOR, SFA, pop, tibial vessels, and triphasic signals in the left [employer] WAXING MACHINE OPERATOR, biphasic waveforms in the proximal SFA with suspected occlusion in the distal SFA with reconstitution in the popliteal with monophasic waveforms in the tibial vessels. The TALON on the right was 0.93 and on the left 0.55. He denies any syncope, dizziness, chest pain. PMH (atherosclerosis) Arachnoiditis Nicotine dependence, cigarettes, uncomplicated Alcohol abuse Hyperlipidemia Impaired fasting glycaemia Hepatic steatosis HTN - Hypertension Tobacco user Gastro-esophageal reflux disease without esophagitis Bronchiectasis Neuropathy Atherosclerosis of aorta Arthritis of carpometacarpal (CMC) joints of both thumbs Bilateral hand pain Bilateral carpal tunnel syndrome Coronary artery calcification History of lumbar fusion Hepatomegaly Erectile dysfunction Lumbar radiculopathy Weight disorder Arthritis of knee VITAMIN D DEFICIENCY Cervical radiculopathy Spinal stenosis in cervical region Fusion of spine of cervical region PSH Procedure Procedure Date Comments left ulnar nerve transposition left knee arthroscopic menisectomy wisdom teeth vasectomy Adenoidectomy, secondary; age 13 or over scraped vertebrea in neck put screws in - 10/27/2012 Lung cancer screening 07/09/2022 - No suspicious pulmonary nodules are seen. Previously noted facial nodule has resolved. Bronchiectasis and mucous plugging is again seen. Chest x-ray 09/19/2021 - no acute process CT angiography of chest with contrast 09/19/2021 - 1. no pulmonary emboli2. bronchial wall thickening suggestive of bronchitis with left basilar predominant mucus plugging3. patchy left basilar opacities are compatible with an infectious or inflammatory pneumonitis. correlate clinically to exclude aspiration.4. 7 mm fissural nodule of the right upper lung is new from 07/07/21, likely a reactive lymph node CT THORAX LUNG CANCER SCR C- 07/07/2021 - Impression: Stable 2 mm nodule in the right upper lobe. Otherwise no suspicious nodules are seen.Recommendation: Continue with annual screening using low-dose chest CT in 12 months. Carpal tunnel release 01/23/2021 - Right CAT scan 07/03/2020 - cat scan of lunglung screeningimpressionno concering pulmonary lesion is identifiedThere is no airspace consolidation or pleural effusionadvanced coronary artery calcification. Stress echocardiography 11/17/2019 - stress echointerpretation summarynegative stess echo for ischemia at 88% mphrnegative exercise ecg ofr ischemia at 88% mphrappropriate blood pressure response to exerciseno arrhythmiastudy terminated due to fatigue no chest pain reportedpoor exercise tolerancetechnically difficult study enhanced with iv definityEcho normal left bentricular size and systolic function EF 55-60% no regional wall motion abnormalities. Mild concentric left bentricular hypertopyno significant balvulare abnormalities. Low dose CT of chest without contrast 07/13/2019 - Impression: No acute intrathoracic abnormality.No suspicious pulmonary nodules or masses.Unchanged size and appearance of the 2 mm right middle lobe pulmonary nodule, stable from 2017 suggestive of benign etiology.Extensive coronary artery calcifications.Hepatic steatosis. Cervical discectomy 09/07/[address] of chest without contrast 06/06/2018 - results are: A lung nodule was found on your recent study.The lung nodule has not changed in size or shape when coimpared to previous CT scans.There are no new findings on your recent exam.The radiologist recommends follow-up screening with a low dose CT sc an in [address] Lung cancer screening 04/05/2017 - 1. no significant change from the preceding study2. no suspicious pulmonary nodules3. continued one year screening follow up Pathology 11/09/2016 - rectal polyp- hyperplastic polyp Colonoscopy 11/05/2016 - Impression; The examined portion of the ileum was normal.Three 2 to 3 mm polyups in the rectum, removed with a cold biopsy forceps. resected and retrieved. CT of lungs 04/03/2016 - Mild emphysemaThere is no airspace consolidation or pleural effusionNo concerning pulmonary lesion is seen. Fluoroscopy of lumbar spine 09/18/2015 - Fluoroscopy provided for a L4-S1 posterior decompression and fusion. Lumbar decompression, medial facetectomy and foraminotomy L3-4,L4-5, L5-S1. Posterior spinal fusion L4-5, L5-S1. 09/18/2015 Chest 08/16/2015 - pre-admit testingNegative chest Lumbar spine 06/21/2015 - MRIChanges of degenerative disc disease and facet arthropathyBilate spendylolysis of L5 with grade 1 apondylolisthesis of L5 on S1 again seenSimilar retrolisthesis of L4 on L5Disc bulging at L4-5 and L5-S1 with associated facet joint arthropathy. There is mild to moderate central canal stenosis at L4-5 as well as bilate neural foraminal compromise at L4-5 and L5-S1.Extruded disc fragment at L4-5 on the left impining upon the thecal sac.findings suggestive of possible arachnoidtis within the distal cauda equina. Right ankle 08/27/2014 - x-rayno radiopaque foreign bodies seen within the right ankleSoft tissue laceration of the lateral malleolusA 3 mm intraarticular loose body adjacent to the lateral malleolus which likly represents old injury Foreign body - thumb 04/17/2008 Right knee 2000 Social Cigarrette Smoker? Active cigarette smoker Other Tobacco Use: Alcohol: 4-5 beers daily Recreational Drugs: Current Home Meds: (Last Updated 01/25 08:48) albuterol (albuterol CFC free 90 mcg/inh MDI) 2 puff inhaled qid PRN: as needed for wheezing aspirin (aspirin 81 mg oral delayed release tablet) 81 mg PO Daily atorvastatin (atorvastatin 80 mg oral tablet) 80 mg PO Daily buPROPion (buPROPion 100 mg/12 hours (SR) oral tablet, extended release) 100 mg PO Daily cholecalciferol (Vitamin D3) PO Daily lisinopril (lisinopril 40 mg oral tablet) 1 tab PO Daily methocarbamol (methocarbamol 500 mg oral tablet) 1 tab PO tid metoprolol (Metoprolol Succinate ER 25 mg oral tablet, extended release) 25 mg PO Daily omeprazole (omeprazole 20 mg oral delayed release capsule) Take 1 capsule by mouth 30 minutes prior to evening meal. pregabalin (Lyrica 100 mg oral capsule) 100 mg PO tid tamsulosin (tamsulosin 0.4 mg oral capsule) 1 cap PO Daily unlisted medication (Atorvastatin Calcium 40mg Tablet) Take 1 tablet by mouth once daily. varenicline (varenicline 1 mg oral tablet) 1 tab PO bid Allergies and Sensitivities: NKA Past Medical History: Problems: (atherosclerosis) Arachnoiditis Nicotine dependence, cigarettes, uncomplicated Alcohol abuse Hyperlipidemia Impaired fasting glycaemia Hepatic steatosis HTN - Hypertension Tobacco user Gastro-esophageal reflux disease without esophagitis Bronchiectasis Neuropathy Atherosclerosis of aorta Arthritis of carpometacarpal (CMC) joints of both thumbs Bilateral hand pain Bilateral carpal tunnel syndrome Coronary artery calcification History of lumbar fusion Hepatomegaly Erectile dysfunction Lumbar radiculopathy Weight disorder Arthritis of knee VITAMIN D DEFICIENCY Cervical radiculopathy Spinal stenosis in cervical region Fusion of spine of cervical region OBJECTIVE Vitals: Last Updated 01/26/24 08:59 Date Temp BP Location Pulse RR SpO2 Pain 01/26/24 0 01/26/24 140/80 Right Arm 01/26/24 148/78 Left Arm 70 94 Vital Signs are the last 3 documented. No Orthostatic Data Available Height and Weight: Last Updated 09/21/23 09:59 Date BMI Wt(kg) Wt(lb) Method Ht(cm) (ft-in) Method 09/21/23 109.2 240 Standing Scale 03/22/23 33.64 109 240 Standing Scale 180 5-11 Standing 09/18/22 104.9 231 Standing Scale Heights and Weights are the last 3 documented. Physical Exam General: resting comfortably on exam chair in no apparent distress HEENT: normocephalic, atraumatic Heart: regular rate and rhythm Chest: nonlabored breathing on room air Abdomen: soft, nontender, nondistended Extremity: BLE warm motor intact with baseline sensory deficits, plap femorals bilaterally, DP/PT signals bilaterally, no wounds on either foot, R first metatarsal with erythema and some tenderness Neuro: alert and oriented Skin: no rashes or lesions 30 Day Labs: 12/27/23 0936 Estimated CrCl 73.90 ASSESSMENT: _ 63-year-old male with history significant for hypertension, hyperlipidemia, carotid stenosis, lumbar stenosis status post orthopedic procedure, presenting for evaluation of his asymptomatic carotid disease as well as abnormal ABIs. He does have B carotid stenosis <80% and remains asymptomatic from that standpoint. With regards to his lower extremities he has a L SFA occlusion with reconstitution at the pop with open tibials. He gets occasional cramping his lower extremities while in bed, but does not experience this with ambulation. His walking is limited by low back pain. His symptoms are not suggestive of claudication or rest pain. PLAN: _ With regards to his carotid stenosis we recommend six month follow up with repeat B carotid duplex. He should continue his asa and statin. We did discuss smoking cessation to which he had previously been successful on chantix. He will discuss this with his PCP. With regards to his PAD, given that he does not currently have wounds or significant claudication we discussed conservative management with asa, statin, and ambulation as much as possible. We will repeat an TALON with his carotid duplex. We did discuss that should he develop rest pain, severe claudication, or wounds to contact our office. He should discuss work up for gout of his L great toe with his PCP. Pt is in agreement of this plan. Thank you for allowing us to participate in this patients care. I saw and evaluated the patient. Discussed with the resident and agree with the resident's findings and plan as documented in the resident's note. I have personally spent___50__ minutes performing [id number] and gpw-eljd-jl-face activities on this date of service. Activities Include: _x_ review of the medical record _x_ obtaining a history _x_ physical exam/evaluation __ review labs _x_ review radiology reports _x_ counseling/educating patient/family/caregiver __ discussion/referral to other healthcare professional x__ documenting care in the medical record __ independent interpretation of results __ communication of results to patient/family/caregiver __ coordination of care Immunizations Given and Recorded Vaccine Date Status Refusal Reason tetanus/diphtheria/pertuss, acel (Tdap) 08/26/14 R ecorded tetanus toxoid 09/19/04 Recorded Medications albuterol CFC free 90 mcg/inh MDI Start: 03/22/23 10:18:00 AM EST, 2 puff, inhaled, qid, Disp# 1 each, Refills: 3, PRN: as needed for wheezing, Pharmacy: [id number] Start Date: 03/22/23 Status: Ordered aspirin 81 mg oral delayed release tablet Start: 12/12/20 2:57:00 PM EDT, 1 tab, PO, Daily Start Date: 12/12/20 Status: Ordered atorvastatin 80 mg oral tablet Start: 12/28/23 5:04:00 PM EST, 1 tab, PO, Daily, Disp# 30 tab, Refills: 11, Pharmacy: [facility] Start Date: 12/28/23 Stop Date: 12/22/24 Status: Ordered lisinopril 40 mg oral tablet Start: 07/30/23 7:33:00 AM EDT, 1 tab, PO, Daily, Disp# 90 tab, Refills: 3, Pharmacy: [facility] Start Date: 07/30/23 Status: Ordered Lyrica 100 mg oral capsule Start: 01/21/24 9:45:00 AM EST, 1 cap, PO, tid, Disp# 90 cap, Refills: 5, Pharmacy: [facility] Start Date: 01/21/24 Stop Date: 07/19/24 Status: Ordered methocarbamol 500 mg oral tablet Start: 09/24/23 8:28:00 AM EDT, 1 tab, PO, tid, Disp# 270 tab, Refills: 2, Pharmacy: [facility] Start Date: 09/24/23 Status: Ordered Metoprolol Succinate ER 25 mg oral tablet, extended release Start: 12/12/20 3:02:00 PM EDT, 1 tab, PO, Daily Start Date: 12/12/20 Status: Ordered omeprazole 20 mg oral delayed release capsule Start: 11/22/23 7:58:00 AM EDT, See Instructions, Disp# 90 cap, Refills: 2, Take 1 capsule by mouth 30 minutes prior to evening meal., Pharmacy: [facility] Start Date: 11/22/23 Status: Ordered predniSONE 10 mg oral tablet Start: 01/27/24 12:19:00 PM EST, See Instructions, Disp# 20 tab, Refills: 0, with food TAKE 4 TABS BY MOUTH ONCE A DAY X 2 DAYS, THEN 3 TABS BY MOUTH ONCE DAY X 2 DAYS, THEN 2 TABS BY MOUTH ONCE A DAY X 2 DAYS, THEN 1 TAB BY MOUTH ONCE A DAY X 2 DAYS., Pharmacy: [facility]/pharmacy #[id number] Start Date: 01/27/24 Status: Ordered tamsulosin 0.4 mg oral capsule Start: 11/22/23 7:58:00 AM EDT, 1 cap, PO, Daily, Disp# 90 cap, Refills: 2, Pharmacy: [facility] Start Date: 11/22/23 Status: Ordered Vitamin D3 Start: 07/05/18 8:10:00 AM EDT, PO, Daily Start Date: 07/05/18 Status: Ordered Mental Status 01/26/24 Barriers to Learning one year None evide nt Mandatory Health Literacy Documentation Yes Health Literacy Communication Barriers N ever Primary Language Chadian Problem List Condition Confirmation Course Effective Dates Status H ealth Status Informant Alcohol abuse Confirmed Active Arachnoiditis Confirmed Active Arthritis of carpometacarpal (CMC) joints of both thumbs Confirmed Active Arthritis of knee 1 Confirmed Active Atherosclerosis of aorta 2 Confirmed Active Bronchiectasis 3 Confirmed Active Coronary artery calcification Confirmed Active Bilateral carpal tunnel syndrome Confirmed Active Cervical radiculopathy Confirmed Active Fusion of spine of cervical region Confirmed 09/07/18 Active Gastro-esophageal reflux disease without esophagitis Confirmed Active Gout Confirmed Active Bilateral hand pain Confirmed Active History of lumbar fusion Confirmed Active HTN - Hypertension Confirmed Active Hyperlipidemia Confirmed Active Impaired fasting glycaemia Confirmed Active Hepatomegaly Confirmed Active (atherosclerosis) Confirmed Active Lumbar radiculopathy Confirmed Active Neuropathy Confirmed Active Nicotine dependence, cigarettes, uncomplicated Confirmed Active Body mass index [BMI] 34.0-34.9, adult Confirmed Active Erectile dysfunction Confirmed Active Spinal stenosis in cervical region Confirmed Active Hepatic steatosis Confirmed Active Tobacco user Confirmed Active VITAMIN D DEFICIENCY Confirmed Active Weight disorder Confirmed Active 1left 2See outsdie rad/study 08/01/21 07/07/21 CT lung screening FINDINGS: Vessels: Severe atherosclerotic changes in the aorta and coronary arteries. 3See outside rad/study 09/04/22 07/09/22 CT lung screening Diagnosis Diagnosis Type Effective Dates Health Status Clinical Service Informant Atherosclerosis of chinik arteries of extremities with intermittent claudication, left leg Discharge Diagnosis 01/26/24 Procedures Procedure Date Related Diagnosis Body Site Status Lung cancer screening 1 07/09/22 C ompleted Chest x-ray 2 09/19/[address] angiography of chest with contrast 3 09/19/[address] THORAX LUNG CANCER SCR C- 4 07/07/21 Completed Carpal tunnel release 5 01/23/21 C ompleted CAT scan 6 07/03/20 Completed Stress echocardiography 7 11/17/[address] of chest without contrast 8 07/13/19 Completed Cervical discectomy 09/07/[address] of chest without contrast 9 06/06/[address] Lung cancer screening 10 04/05/17 Completed Pathology 11 11/09/16 Completed Colonoscopy 12 11/05/[address] of lungs 13 04/03/16 Completed Fluoroscopy of lumbar spine 14 09/18/15 Completed Lumbar decompression, medial facetectomy and foraminotomy L3-4,L4-5, L5-S1. Posterior spinal fusion L4-5, L5-S1. 09/18/15 Completed Chest 15 08/16/15 Completed Lumbar spine 16 06/21/15 Completed Right ankle 17 08/27/14 Completed Foreign body - thumb 04/17/08 Comp leted Right knee 2000 Completed Adenoidectomy, secondary; ag e 13 or over Completed left knee arthroscopic menisectomy Completed left ulnar nerve transposition Completed scraped vertebrea in neck pu t screws in - 10/27/2012 Completed vasectomy Completed wisdom teeth Completed 1No suspicious pulmonary nodules are seen. Previously noted facial nodule has resolved. Bronchiectasis and mucous plugging is again seen. 2no acute process 31. no pulmonary emboli 2. bronchial wall thickening suggestive of bronchitis with left basilar predominant mucus plugging 3. patchy left basilar opacities are compatible with an infectious or inflammatory pneumonitis. correlate clinically to exclude aspiration. 4. 7 mm fissural nodule of the right upper lung is new from 07/07/21, likely a reactive lymph node 4Impression: Stable 2 mm nodule in the right upper lobe. Otherwise no suspicious nodules are seen. Recommendation: Continue with annual screening using low-dose chest CT in 12 months. 5Right 6cat scan of lung lung screening impression no concering pulmonary lesion is identified There is no airspace consolidation or pleural effusion advanced coronary artery calcification. 7stress echo interpretation summary negative stess echo for ischemia at 88% mphr negative exercise ecg ofr ischemia at 88% mphr appropriate blood pressure response to exercise no arrhythmia study terminated due to fatigue no chest pain reported poor exercise tolerance technically difficult study enhanced with iv definity Echo normal left bentricular size and systolic function EF 55-60% no regional wall motion abnormalities.Mild concentric left bentricular hypertopy no significant balvulare abnormalities. 8Impression: No acute intrathoracic abnormality. No suspicious pulmonary nodules or masses. Unchanged size and appearance of the 2 mm right middle lobe pulmonary nodule, stable from 2017 suggestive of benign etiology. Extensive coronary artery calcifications. Hepatic steatosis. 9results are: A lung nodule was found on your recent study. The lung nodule has not changed in size or shape when coimpared to previous CT scans. There are no new findings on your recent exam. The radiologist recommends follow-up screening with a low dose CT sc an in 12 months. 101. no significant change from the preceding study 2. no suspicious pulmonary nodules 3. continued one year screening follow up 11rectal polyp- hyperplastic polyp 12Impression; The examined portion of the ileum was normal. Three 2 to 3 mm polyups in the rectum, removed with a cold biopsy forceps. resected and retrieved. 13Mild emphysema There is no airspace consolidation or pleural effusion No concerning pulmonary lesion is seen. 14Fluoroscopy provided for a L4-S1 posterior decompression and fusion. 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 There is mild to moderate central canal stenosis at L4-5 as well as bilate neural foraminal compromise at L4-5 and L5-S1. Extruded disc fragment at L4-5 on the left impining upon the thecal sac. findings suggestive of possible arachnoidtis within the distal cauda equina. 17x-ray no radiopaque foreign bodies seen within the right ankle Soft tissue laceration of the lateral malleolus A 3 mm intraarticular loose body adjacent to the lateral malleolus which likly represents old injury Vital Signs Most recent to oldest [Reference Range]: 1 2 Heart Rate 70 bpm (01/26/24 8:55 AM) Blood Pressure 140/80mmHg (01/26/24 8:56 AM) 148/78mmHg (01/26/24 8:55 AM) Cuff Pulse Pressure 60 mmHg (01/26/24 8:56 AM) 70 mmHg (01/26/24 8:55 AM) BP Location # 1 Right Arm (01/26/24 8:56 AM) Left Arm (01/26/24 8:55 AM) Social History Social History Type Response Smoking Status Never smoked cigaret lior Sex Male Sex Representation Male (finding) Vascular surgery Outpatient Note * MD Sadia, Pelon Otto: MODIFY MD Mccullough Eugene J: MODIFY Event Display: Vascular Surgery Outpt Note Authored Date: [id number] VASCULAR SURGERY OUTPATIENT NOTE Name: FARHAT PEDROZA Patient Number: [id number] : 1960 Date of Service: 01/26/2024 Chief Complaint: _ Asymptomatic carotid stenosis, PAD HPI: _ 63-year-old male with history significant for hypertension, hyperlipidemia, carotid stenosis, lumbar stenosis status post orthopedic procedure, presenting for evaluation of his asymptomatic carotid disease as well as abnormal ABIs. He reports low back pain with decreased sensation to the bilateral lower extremities for 6 to 8 years following his spine procedure. But otherwise denies burning or cramping to his lower extremities with ambulation. He does endorse cramping occasionally, approximately 1 time per month while laying in bed. He denies any recent difficulty with word finding or swallowing, vision changes or lateralizing motor or sensory deficit. He did recently undergo a carotid duplex that demonstrated 70 to 79% stenosis in the right ICA, and 60 to 69% stenosis in the left ICA. His TALON demonstrated triphasic waveforms in the right CARTON WAXING MACHINE OPERATOR, SFA, pop, tibial vessels, and triphasic signals in the left CARTON WAXING MACHINE OPERATOR, biphasic waveforms in the proximal SFA with suspected occlusion in the distal SFA with reconstitution in the popliteal with monophasic waveforms in the tibial vessels. The TALON onthe right was 0.93 and on the left 0.55. He denies any syncope, dizziness, chest pain. PMH (atherosclerosis) Arachnoiditis Nicotine dependence, cigarettes, uncomplicated Alcohol abuse Hyperlipidemia Impaired fasting glycaemia Hepatic steatosis HTN - Hypertension Tobacco user Gastro-esophageal reflux disease without esophagitis Bronchiectasis Neuropathy Atherosclerosis of aorta Arthritis of carpometacarpal (CMC) joints of both thumbs Bilateral hand pain Bilateral carpal tunnel syndrome Coronary artery calcification History of lumbar fusion Hepatomegaly Erectile dysfunction Lumbar radiculopathy Weight disorder Arthritis of knee VITAMIN D DEFICIENCY Cervical radiculopathy Spinal stenosis in cervical region Fusion of spine of cervical region PSH Procedure Procedure Date Comments left ulnar nerve transposition left knee arthroscopic menisectomy wisdom teeth vasectomy Adenoidectomy, secondary; age 13 or over scraped vertebrea in neck put screws in - 10/27/2012 Lung cancer screening 07/09/2022 - No suspicious pulmonary nodules are seen. Previously noted facial nodule has resolved. Bronchiectasis and mucous plugging is again seen. Chest x-ray 09/19/2021 - no acute process CT angiography of chest with contrast 09/19/2021 - 1. no pulmonary emboli2. bronchial wall thickening suggestive of bronchitis with left basilar predominant mucus plugging3. patchy left basilar opacities are compatible with an infectious or inflammatory pneumonitis. correlate clinically to exclude aspiration.4. 7 mm fissural nodule of the right upper lung is new from 07/07/21, likely a reactive lymph node CT THORAX LUNG CANCER SCR C- 07/07/2021 - Impression: Stable 2 mm nodule in the right upper lobe. Otherwise no suspicious nodules are seen.Recommendation: Continue with annual screening using low-dose chest CT in 12 months. Carpal tunnel release 01/23/2021 - Right CAT scan 07/03/2020 - cat scan of lunglung screeningimpressionno concering pulmonary lesion is identifiedThere is no airspace consolidation or pleural effusionadvanced coronary artery calcification. Stress echocardiography 11/17/2019 - stress echointerpretation summarynegative stess echo for ischemia at 88% mphrnegative exercise ecg ofr ischemia at 88% mphrappropriate blood pressure response to exerciseno arrhythmiastudy terminated due to fatigue no chest pain reportedpoor exercise tolerancetechnically difficult study enhanced with iv definityEcho normal left bentricular size and systolic function EF 55-60% no regional wall motion abnormalities. Mild concentric left bentricular hypertopyno significant balvulare abnormalities. Low dose CT of chest without contrast 07/13/2019 - Impression: No acute intrathoracic abnormality.No suspicious pulmonary nodules or masses.Unchanged size and appearance of the 2 mm right middle lobe pulmonary nodule, stable from 2017 suggestive ofbenign etiology.Extensive coronary artery calcifications.Hepatic steatosis. Cervical discectomy 09/07/[address] of chest without contrast 06/06/2018 - results are: A lung nodule was found on your recent study.The lung nodule has not changed in sizeor shape when coimpared to previous CT scans.There are no new findings on your recent exam.The radiologist recommends follow-up screening with a low dose CT sc an in [address] Lung cancer screening 04/05/2017 - 1. no significant change from the preceding study2. no suspicious pulmonary nodules3. continued one year screening follow up Pathology 11/09/2016 - rectal polyp- hyperplastic polyp Colonoscopy 11/05/2016 - Impression; The examined portion of the ileum was normal.Three 2 to 3 mm polyups in the rectum, removed with a cold biopsy forceps. resected and retrieved. CT of lungs 04/03/2016 - Mild emphysemaThere is no airspace consolidation or pleural effusionNo concerning pulmonary lesion is seen. Fluoroscopy of lumbar spine 09/18/2015 - Fluoroscopy provided for a L4-S1 posterior decompression and fusion. Lumbar decompression, medial facetectomy and foraminotomy L3-4,L4-5, L5-S1. Posterior spinal fusionL4-5, L5-S1. 09/18/2015 Chest 08/16/2015 - pre-admit testingNegative chest Lumbar spine 06/21/2015 - MRIChanges of degenerative disc disease and facet arthropathyBilate spendylolysis of L5 with grade 1 apondylolisthesis of L5 on S1 again seenSimilar retrolisthesis of L4 on L5Disc bulging at L4-5 and L5-S1 with associated facet joint arthropathy. There is mild to moderate central canal stenosis at L4-5 as well as bilate neural foraminal compromise at L4-5 and L5-S1.Extruded disc fragment at L4-5 on the left impining upon the thecal sac.findings suggestive of possible arachnoidtis within the distal cauda equina. Right ankle 08/27/2014 - x-rayno radiopaque foreign bodies seen within the right ankleSoft tissue laceration of the lateral malleolusA 3 mm intraarticular loose body adjacent to the lateral malleolus which likly representsold injury Foreign body - thumb 04/17/2008 Right knee 2000 [employer] Cigarrette Smoker? Active cigarette smoker Other Tobacco Use: Alcohol: 4-5 beers daily Recreational Drugs: Current Home Meds: (Last Updated 01/25 08:48) albuterol (albuterol CFC free 90 mcg/inh MDI) 2 puff inhaled qid PRN: as needed for wheezing aspirin (aspirin 81 mg oral delayed release tablet) 81 mg PO Daily atorvastatin (atorvastatin 80 mg oral tablet) 80 mg PO Daily buPROPion (buPROPion 100 mg/12 hours (SR) oral tablet, extended release) 100 mg PO Daily cholecalciferol (Vitamin D3) PO Daily lisinopril (lisinopril 40 mg oral tablet) 1 tab PO Daily methocarbamol (methocarbamol 500 mg oral tablet) 1 tab PO tid metoprolol (Metoprolol Succinate ER 25 mg oral tablet, extended release) 25 mg PO Daily omeprazole (omeprazole 20 mg oral delayed release capsule) Take 1 capsule by mouth 30 minutes priorto evening meal. pregabalin (Lyrica 100 mg oral capsule) 100 mg PO tid tamsulosin (tamsulosin 0.4 mg oral capsule) 1 cap PO Daily unlisted medication (Atorvastatin Calcium 40mg Tablet) Take 1 tablet by mouth once daily. varenicline (varenicline 1 mg oral tablet) 1 tab PO bid Allergies and Sensitivities: NKA Past Medical History: Problems: (atherosclerosis) Arachnoiditis Nicotine dependence, cigarettes, uncomplicated Alcohol abuse Hyperlipidemia Impaired fasting glycaemia Hepatic steatosis HTN - Hypertension Tobacco user Gastro-esophageal reflux disease without esophagitis Bronchiectasis Neuropathy Atherosclerosis of aorta Arthritis of carpometacarpal (CMC) joints of both thumbs Bilateral hand pain Bilateral carpal tunnel syndrome Coronary artery calcification History of lumbar fusion Hepatomegaly Erectile dysfunction Lumbar radiculopathy Weight disorder Arthritis of knee VITAMIN D DEFICIENCY Cervical radiculopathy Spinal stenosis in cervical region Fusion of spine of cervical region OBJECTIVE Vitals: Last Updated 01/26/24 08:59 Date Temp BP Location Pulse RR SpO2 Pain 01/26/24 0 01/26/24 140/80 Right Arm 01/26/24 148/78 Left Arm 70 94 Vital Signs are the last 3 documented. No Orthostatic Data Available Height and Weight: Last Updated 09/21/23 09:59 Date BMI Wt(kg) Wt(lb) Method Ht(cm) (ft-in) Method 09/21/23 109.2 240 Standing Scale 03/22/23 33.64 109 240 Standing Scale 180 5-11 Standing 09/18/22 104.9 231 Standing Scale Heights and Weights are the last 3 documented. Physical Exam General: resting comfortably on exam chair in no apparent distress HEENT: normocephalic, atraumatic Heart: regular rate and rhythm Chest: nonlabored breathing on room air Abdomen: soft, nontender, nondistended Extremity: BLE warm motor intact with baseline sensory deficits, plap femorals bilaterally, DP/PT signals bilaterally, no wounds on either foot, R first metatarsal with erythema and some tenderness Neuro: alert and oriented Skin: no rashes or lesions 30 Day Labs: 12/27/23 0936 Estimated CrCl 73.90 ASSESSMENT: _ 63-year-old male with history significant for hypertension, hyperlipidemia, carotid stenosis, lumbar stenosis status post orthopedic procedure, presenting for evaluation of his asymptomatic carotid disease as well as abnormal ABIs. He does have B carotid stenosis <80% and remains asymptomatic from that standpoint. With regards to his lower extremities he has a L SFA occlusion with reconstitution at the pop with open tibials. He gets occasional cramping his lower extremities while in bed, butdoes not experience this with ambulation. His walking is limited by low back pain. His symptoms arenot suggestive of claudication or rest pain. PLAN: _ With regards to his carotid stenosis we recommend six month follow up with repeat B carotid duplex.He should continue his asa and statin. We did discuss smoking cessation to which he had previously been successful on chantix. He will discuss this with his PCP. With regards to his PAD, given that he does not currently have wounds or significant claudication we discussed conservative management with asa, statin, and ambulation as much as possible. We will repeat an TALON with his carotid duplex. We did discuss that should he develop rest pain, severe claudication, or wounds to contact our office. He should discuss work up for gout of his L great toe with his PCP. Pt is in agreement of this plan. Thank you for allowing us to participate in this patients care. I saw and evaluated the patient. Discussed with the resident and agree with the resident's findingsand plan as documented in the resident's note. I have personally spent___50__ minutes performing [id number] and [id number]-face activities onthis date of service. Activities Include: _x_ review of the medical record _x_ obtaining a history _x_ physical exam/evaluation __ review labs _x_ review radiology reports _x_ counseling/educating patient/family/caregiver __ discussion/referral to other healthcare professional x__ documenting care in the medical record __ independent interpretation of results __ communication of results to patient/family/caregiver __ coordination of care Electronic Signature on File Electronically Reviewed/Signed by: Jordan Sinclair DO Author Signature Dt/Tm:01/26/2024 09:43 AM Resident Division of General Surgery Electronically Reviewed/Signed by: MD Vamshi Ramirezigner Signature Dt/Tm: 01/26/2024 09:51 AM Legal Financial Specialist Shai Bull [facility] [place] [address], [address] [place] [address] Patient Care team information Care Team Personnel Name: GERA Newby Tara Position: Nurse Pract - Family Med Member Role: Primary Care Provider Address: [address] [place] [id number] [place] Name: MD Sascha, Oliver Salinas Position: Physician - Family Med Member Role: Lifetime Relationship Address: [address] [place] [address] [place] Name: CHU Sharpe Lynn Position: Physician Narcotics Agent Exempt - Vasc Surg Member Role: Lifetime Relationship Address: [address] [place] [address] [place] Care Team Related Persons Name: LITZY PEDROZA Name: LITZY PEDROZA
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
[2024-04-20] MEDS: DICLOFENAC SOD 1% GEL 100 GM TUBE EXT SCH (12:57)
[2024-04-20 16:15] LABS: A calco-baum cmplx NotReported Not Detected (NotDetected); Bact fragilis Not Reported Not Detected (NotDetected); Blood Culture Id Panel See PCR Comment (NotDetected); C auris Not Reported Not Detected (NotDetected); Calbicans Not Reported Not Detected (NotDetected); Candida glabrata Not Reported Not Detected (NotDetected); Candida krusei Not Reported Not Detected (NotDetected); Cneoformans/gatti Not Reported Not Detected (NotDetected); Cparapsilosis Not Reported Not Detected (NotDetected); E cloacae compx Not Reported Not Detected (NotDetected); Efaecalis Not Reported Not Detected (NotDetected); Efaecium Not Reported Not Detected (NotDetected); Enterobacterales Not Reported Not Detected (NotDetected); Escherichia coli Not Reported Not Detected (NotDetected); H influenzae Not Reported Not Detected (NotDetected); K aerogenes Not Reported Not Detected (NotDetected); Koxytoca Not Reported Not Detected (NotDetected); Kpneumoniae grp Not Reported Not Detected (NotDetected); Lmonocyt Not Reported Not Detected (NotDetected); N meningitidis Not Reported Not Detected (NotDetected); P aeruginosa Not Reported Not Detected (NotDetected); Proteus spp Not Reported Not Detected (NotDetected); Salmonella spp Not Reported Not Detected (NotDetected); Staph lugdunensis Not Reported Not Detected (NotDetected); Staph spp. Not Reported Not Detected (NotDetected); Staphaureus Not Reported Not Detected (NotDetected); Staphepi Not Reported Not Detected (NotDetected); Stenmaltophilia Not Reported Not Detected (NotDetected); Strep agal(GrpB) Not Reported Not Detected (NotDetected); Strep pneum Not Reported DETECTED (NotDetected); Strep pyog (GrpA) Not Reported Not Detected (NotDetected); Strep spp Not Reported DETECTED (NotDetected); Streptococcus spp DETECTED (NotDetected)
[2024-04-20 16:43] LABS: Streptococcus pneumoniae DETECTED (NotDetected)
[2024-04-20] MEDS: ACETAMINOPHEN 325 MG TAB PO PRN (20:21)
[2024-04-20] MEDS: MELATONIN 3 MG TAB PO PRN (20:22)
[2024-04-21] MEDS: cefTRIAXone SODIUM 2,000 MG/50 ML BAG IV SCH (06:35)
--- NOTE | 2024-04-21 07:14 | Hospitalist Progress Note ---
Date of Service April 21, 2024 Assessment & Plan (1) Pneumonia: (2) Chest pain: (3) Alcohol abuse: (4) Tobacco abuse: (5) RAJIV (acute kidney injury): (6) Hyponatremia: Plan 64-year-old male PMHx HTN, dyslipidemia, lumbar stenosis, alcohol abuse, and tobacco abuse presenting for right-sided chest pain x 3 weeks. Vitals upon arrival are BP 143/74, HR - 103, temp - 39.5 C, RR - 24. ED evaluation reveals leukocytosis 15.23, H&H 12.9/37.9, sodium 132, creatinine 1.94, lactate 0.9, troponin 15.5, pending repeat, Pro-Viet 1.15; BioFire negative; CXR with R mid zone consolidative opacity, suspected patchy lower zone opacities; chest CT RUL subsegmental consolidation suggestive of acute pneumonia, few reactive looking small mediastinal lymph nodes; EKG NSR at 97 bpm. #Gram + Bacteremia secondary to RUL PNA Sx of fever, chills, pain upon inspiration 3 weeks, resulting in discomfort and inability to sleep. Patient smokes approximately 1 pack/day at baseline; did not receive pneumonia or COVID vaccines but otherwise up-to-date. Unproductive cough. Sick contacts - . Reports flu infection 1 month prior. Denies shortness of breath. Given hx of alcohol use, rule out aspiration pneumonia. Concerns of sepsis given elevated vitals. - CBC leukocytosis 15.23-> 9.84 - Pro-calcitonin 1.15; CRP= 18 - Bcx + for strep pneumoniae - CXR shows midzone consolidative opacity, suspected patchy lower zone opacities; chest CT revealing RUL subsegmental consolidation suggestive of acute pneumonia, few reactive looking small mediastinal lymph nodes - Tylenol prn fever/pain - speech eval w/out signs of aspiration - Continue Ceftriaxone + Azithro - Repeat Blood cultures pending - TTE with 1cm filamentous structure post mitral leaflet-> redundant chordae vs small vegetation-> plan for AIDE #Chest pain Chest pain is likely secondary to pneumonia -- costochondritis from coughing. Patient has a hx of atypical chest pain per cardiology note 01/05/2024. This atyical chest pain is usually mediastinal and not associated with inspiration. His current pain is right sided along the rib line, reproducible upon deep inspiration. - troponin trending down 15.5 -> 14.7 - EKG sinus rhythm with ST abnormality. Not significant when compared to prior EKG 09/2021. #RAJIV/hyponatremia Resolved Likely due to to renal hypoperfusion; poor oral intake ~ 2-3 weeks as reported by patient. Hyponatremia likely secondary to poor oral intake. - Cr 1.94-> 1.31 - Na 132-> 137 - IVF LR @ 100 mL/hr x 1 L #Hematuria UA showed trace blood in urine - f/u after discharge with PCP #AUD/TUD Interested in quitting. Typical alcohol use is 10 beers a day although due to sickness has only had 5 drinks across last 3 weeks with most recent drink being Wednesday. Typical tobacco use is 1 pack of cigarettes a day. - suggested talking to PCP Mela Newby Dispo: Admit, med/sx VTE prophylaxis: Heparin Admission and Anticipated Discharge Date Admission Date: April 20, 2024 Supervising Physician Co-Signing Physician Notes Patient seen and examined, chart reviewed, case discussed with Shirley Byrd PGY 3. I agree with the assessment and plan as above. leukocysotis improving. Now back to room air. Currently patient with bacteremia of strep pneumo with pneumonia. Plan is to transition to oral antibiotics at discharge however small artifact noted on echocardiogram which likely is a small filamenet Cardio does not beelieve this is a vegetation. CLinical correlation though is necesary to interperet in this case. Given that patient clinically improved in about 24 hours after initiating antibiotics, doubt this is a vegeation. will continue to monitor awaiting repeat blood cultures. CT with right upper lobe sub-segmental consolidation Subjective Pt seen at bedside this morning. Doing well. No events overnight. Feels significantly better than yesterday. Denies fever/chills, dyspnea, chest/pleuritic pain. Review of Systems Review of Systems: As per above Physical Exam Physical Exam: Constitutional: well-appearing, no acute distress HEENT: NCAT, no conjunctival injection CV: regular rhythm, no murmur appreciated, extremities well-perfused, no LE edema Resp: CTABL, + end exp wheezes/rhonchi throughout, no increased work of breathing GI: soft, nondistended, nontender MSK: no gross deformities appreciated Skin: warm, dry, no rash appreciated Neuro: alert, oriented, no focal neurologic deficit appreciated Results & Data Results & Data Vital Signs (Past 12 Hours) Vital Signs Temp Pulse Resp BP Pulse Ox O2 Del Method 04/20/24 20:20 Room Air 04/20/24 19:33 36.4 C L 71 18 113/63 91 Room Air Resident Activity Tracking Resident Involvement: Resident Care Provided Care Provided: Adult Hospital Medicine
--- NOTE | 2024-04-21 09:34 | XCELERA ---
[id number] \\[email or web address]\[id number]
[2024-04-21 09:38] LABS: Hemoglobin 12.7 g/dl (14.0-18.0); Mean Corpuscular Hemoglobin 30.2 pg (25.0-34.0); Mean Corpuscular Hgb Conc 33.4 g/dL (32.0-36.0); Mean Corpuscular Volume 90.3 fL (80.0-100.0); Mean Platelet Volume 10.8 fL (9.4-12.4); Platelet Count 208 K/uL (130-400); RDW Coefficient of Variation 13.2 % (11.5-14.5); RDW Standard Deviation 43.5 fL (36.4-46.3); Red Blood Count 4.21 M/uL (4.70-6.10); White Blood Count 9.84 K/ul (4.8-10.8)
[2024-04-21 10:02] LABS: BUN Creatinine Ratio 19.1 (10-20); C Reactive Protein 18.89 mg/dl (0-0.5); Calcium 9.3 mg/dl (8.6-10.3); Creatinine Clr Calc Pharmacy 69.4 ml/min; Potassium 3.6 mmol/L (3.5-5.1)
--- NOTE | 2024-04-21 23:13 | Billing Data ---
Date of Service April 21, 2024 Coding Level of Care Code 15781 SUB INP/OBS CARE MIN
[2024-04-22 07:00] VITALS: BP 127/80; PULSE 60; RESP 18; TEMP 97.9; O2SAT 92
[2024-04-22 07:08] LABS: Hematocrit (blood only) 38.3 % (42.0-52.0); Hemoglobin 12.8 g/dl (14.0-18.0); Mean Corpuscular Hemoglobin 30.3 pg (25.0-34.0); Mean Corpuscular Hgb Conc 33.4 g/dL (32.0-36.0); Mean Corpuscular Volume 90.8 fL (80.0-100.0); Mean Platelet Volume 10.8 fL (9.4-12.4); Platelet Count 239 K/uL (130-400); RDW Standard Deviation 43.1 fL (36.4-46.3); Red Blood Count 4.22 M/uL (4.70-6.10); White Blood Count 7.62 K/ul (4.8-10.8)
[2024-04-22 07:24] LABS: BUN Creatinine Ratio 18.5 (10-20); Calcium 9.4 mg/dl (8.6-10.3); Creatinine Clr Calc Pharmacy 76.4 ml/min; Potassium 3.8 mmol/L (3.5-5.1)
--- NOTE | 2024-04-22 09:33 | Hospitalist Progress Note ---
Date of Service April 22, 2024 Assessment & Plan (1) Pneumonia: (2) Chest pain: (3) Alcohol abuse: (4) Tobacco abuse: (5) RAJIV (acute kidney injury): (6) Hyponatremia: Plan 64-year-old male PMHx HTN, dyslipidemia, lumbar stenosis, alcohol abuse, and tobacco abuse presenting for right-sided chest pain x 3 weeks. Vitals upon arrival are BP 143/74, HR - 103, temp - 39.5 C, RR - 24. ED evaluation reveals leukocytosis 15.23, H&H 12.9/37.9, sodium 132, creatinine 1.94, lactate 0.9, troponin 15.5, pending repeat, Pro-Viet 1.15; BioFire negative; CXR with R mid zone consolidative opacity, suspected patchy lower zone opacities; chest CT RUL subsegmental consolidation suggestive of acute pneumonia, few reactive looking small mediastinal lymph nodes; EKG NSR at 97 bpm. #Gram + Bacteremia secondary to RUL PNA Sx of fever, chills, pain upon inspiration 3 weeks, resulting in discomfort and inability to sleep. Patient smokes approximately 1 pack/day at baseline; did not receive pneumonia or COVID vaccines but otherwise up-to-date. Unproductive cough. Sick contacts - . Reports flu infection 1 month prior. Denies shortness of breath. Given hx of alcohol use, rule out aspiration pneumonia. Concerns of sepsis given elevated vitals. - CBC leukocytosis 15.23-> 9.84 - Pro-calcitonin 1.15; CRP= 18 - Bcx + for strep pneumoniae -> tinsley sensitive - CXR shows midzone consolidative opacity, suspected patchy lower zone opacities; chest CT revealing RUL subsegmental consolidation suggestive of acute pneumonia, few reactive looking small mediastinal lymph nodes - Tylenol prn fever/pain - speech eval w/out signs of aspiration - Continue Ceftriaxone + Azithro -> plan for transition to oral antibiotics at d/c with total duration of 14 days - Repeat Blood cultures pending - TTE with 1cm filamentous structure post mitral leaflet-> likely redundant chordae; as long as second blood culture negative defer AIDE #Chest pain Chest pain is likely secondary to pneumonia -- costochondritis from coughing. Patient has a hx of atypical chest pain per cardiology note 01/05/2024. This atyical chest pain is usually mediastinal and not associated with inspiration. His current pain is right sided along the rib line, reproducible upon deep inspiration. - troponin trending down 15.5 -> 14.7 - EKG sinus rhythm with ST abnormality. Not significant when compared to prior EKG 09/2021. #RAJIV/hyponatremia Resolved Likely due to to renal hypoperfusion; poor oral intake ~ 2-3 weeks as reported by patient. Hyponatremia likely secondary to poor oral intake. - Cr 1.94-> 1.19 - lisinopril at hold at present with BPs well controlled, creatinine back to baseline, could restart in elevated blood pressures - Na 132-> 137 #Hematuria UA showed trace blood in urine - f/u after discharge with PCP #AUD/TUD Interested in quitting. Typical alcohol use is 10 beers a day although due to sickness has only had 5 drinks across last 3 weeks with most recent drink being Wednesday. Typical tobacco use is 1 pack of cigarettes a day. - suggested talking to PCP Mela Newby Dispo: Admit, med/sx VTE prophylaxis: Heparin Admission and Anticipated Discharge Date Admission Date: April 20, 2024 Subjective Pt seen at bedside this morning. Doing well. No events overnight. Again feeling better than yesterday. Denies fever/chills, dyspnea, chest/pleuritic pain. Minimal cough. Review of Systems Review of Systems: As per above Physical Exam Physical Exam: Constitutional: well-appearing, no acute distress HEENT: NCAT, no conjunctival injection CV: regular rhythm, no murmur appreciated, extremities well-perfused, no LE edema Resp: CTABL, + end exp wheezes/rhonchi throughout, no increased work of breathing GI: soft, nondistended, nontender MSK: no gross deformities appreciated Skin: warm, dry, no rash appreciated Neuro: alert, oriented, no focal neurologic deficit appreciated Results & Data Results & Data Vital Signs (Past 12 Hours) Vital Signs Temp Pulse Resp BP Pulse Ox O2 Del Method 04/22/24 07:15 Room Air 04/22/24 07:00 36.6 C 60 18 127/80 92 Room Air Resident Activity Tracking Resident Involvement: Resident Care Provided Care Provided: Adult Hospital Medicine
--- NOTE | 2024-04-22 10:40 | Discharge Summary ---
Date of Service April 22, 2024 Admission HPI Per Admitting Provider 64-year-old male PMHx HTN, dyslipidemia, lumbar stenosis, alcohol abuse, and tobacco abuse presenting for right-sided chest pain x 3 weeks. States that the reason he arrived now instead of 3 weeks ago was because he could not take it anymore and could not sleep given the pain and discomfort. Approximately 3 weeks ago, patient started to have R sided chest pain located just below R breast. Described as sharp overall rather constant, but severity does change. At its maximum, pain is a 10 out of 10 on the pain scale, but at the time of visit pain is approximately 6 out of 10 on the pain scale. Patient states that he has had a cough for the past 3 weeks which has been nonproductive. He does feel feverish but did not take his temperature. No URI symptoms otherwise. Patient admits to smoking 1 pack/day but has not smoked any cigarettes over the past 3 to 4 days because it causes him to cough too much. Additionally, patient tends to drink 8-10 beers per day, but has not done so because he has felt so il l. Admits to anorexia. Denying SOB, abdominal pain, N/V/D/C, numbness/tingling, LUTS, headache, dizziness, or syncope. Patient is unsure if he has had sick contacts. ED evaluation reveals leukocytosis 15.23, H&H 12.9/37.9, sodium 132, creatinine 1.94, BUN 31, lactate 0.9, troponin 15.5, pending repeat, Pro-Viet 1.15; BioFire negative; CXR with R mid zone consolidative opacity, suspected patchy lower zone opacities; chest CT RUL subsegmental consolidation suggestive of acute pneumonia, few reactive looking small mediastinal lymph nodes; EKG NSR at [address] Salas's attestation for adjustments/additions to treatment plan. Principal Diagnosis PNA Discharge Exam Constitutional: well-appearing, no acute distress HEENT: NCAT, no conjunctival injection CV: regular rhythm, no murmur appreciated, extremities well-perfused, no LE edema Resp: CTABL, + end exp wheezes/rhonchi throughout, no increased work of breathing GI: soft, nondistended, nontender MSK: no gross deformities appreciated Skin: warm, dry, no rash appreciated Neuro: alert, oriented, no focal neurologic deficit appreciated Discharge Data Allergies Allergy/AdvReac Type Severity Reaction Status Date / Time Egg Derived AdvReac Unknown GI UPSET Verified 01/05/24 10:49 Consultations 04/20/24 03:15 ED Decision to Admit Stat Ordered Studies 04/20/24 01:26 CT chest diagnostic w con Stat Hospital Course (1) Hypoxia: (2) Hyponatremia: (3) RAJIV (acute kidney injury): (4) Pneumonia: (5) Alcohol abuse: (6) Tobacco abuse: Plan 64-year-old male PMHx HTN, dyslipidemia, lumbar stenosis, alcohol abuse, and tobacco abuse presenting for right-sided chest pain x 3 weeks. Vitals upon arrival are BP 143/74, HR - 103, temp - 39.5 C, RR - 24. ED evaluation reveals leukocytosis 15.23, H&H 12.9/37.9, sodium 132, creatinine 1.94, lactate 0.9, troponin 15.5, pending repeat, Pro-Viet 1.15; BioFire negative; CXR with R mid zone consolidative opacity, suspected patchy lower zone opacities; chest CT RUL subsegmental consolidation suggestive of acute pneumonia, few reactive looking small mediastinal lymph nodes; EKG NSR at 97 bpm. #Gram + Bacteremia secondary to RUL PNA - Bcx + for strep pneumoniae -> tinsley sensitive - CXR shows midzone consolidative opacity, suspected patchy lower zone opacities; chest CT revealing RUL subsegmental consolidation suggestive of acute pneumonia, few reactive looking small mediastinal lymph nodes - speech eval w/out signs of aspiration - TTE with 1cm filamentous structure post mitral leaflet-> likely redundant chordae; defer AIDE after discussion with cardiology - Continue Ceftriaxone + Azithro -> in discussion with ID plan for transition to Augmentin at d/c with total duration of 14 days. Completed 5 days 500mg azithromycin - Repeat Blood cultures pending at d/c #Chest pain Chest pain is likely secondary to pneumonia -- costochondritis from coughing. Patient has a hx of atypical chest pain per cardiology note 01/05/2024. This atyical chest pain is usually mediastinal and not associated with inspiration. His current pain is right sided along the rib line, reproducible upon deep inspiration. - troponin trending down 15.5 -> 14.7 - EKG sinus rhythm with ST abnormality. Not significant when compared to prior EKG 09/2021. #RAJIV/hyponatremia Resolved Likely due to to renal hypoperfusion; poor oral intake ~ 2-3 weeks as reported by patient. Hyponatremia likely secondary to poor oral intake. - Cr 1.94-> 1.19 - lisinopril at hold at present with BPs well controlled, creatinine back to baseline, repeat BMP 4-5 days with PCP and restart lisinopril at PCP f/u or sooner if elevated BPs - Na 132-> 137 #Hematuria UA showed trace blood in urine - f/u after discharge with PCP -> would get repeat UA #AUD/TUD Interested in quitting. Typical alcohol use is 10 beers a day although due to sickness has only had 5 drinks across last 3 weeks with most recent drink being Wednesday. Typical tobacco use is 1 pack of cigarettes a day. - suggested talking to PCP Mela Newby Total Time Total Time Spent Total Time Spent (In Minutes): See Attending Attestation Discharge Plan Discharge Items Patient Disposition: Home - Self-Care Reason For Visit: PNA, CHEST PAIN Discharge Diagnosis: PNA Activity: Per Instructions section Non-emergency contact: Primary Care Provider Call non-emergency contact if: you have any medication questions, your symptoms worsen and your pain is not controlled Follow-up/Referrals: Mela Newby [Primary Care Provider] - Diet: Regular Addtl Attending Provider Instructions: You were admitted with a pneumonia. You blood cultures did grow bacteria that would be consistent with pneumonia. We have been treating you with IV antibiotics. We are going to transition you to oral antibiotics for an extended period due to the positive blood cultures. You should take Augmentin twice a day for the next 11 days. Your next dose is due tomorrow morning. We have been holding your lisinopril, which you take for blood pressure, due to the bump in your kidney function number, creatinine. Your kidney function was likely elevated due to dehydration. Your blood pressure has been good without it, so you should hold off in restarting it until you follow up with your primary care doctor next week. If your blood pressure is elevated at home, please reach out to your primary care doctor because they can restart it sooner. You should follow up with your primary care doctor next week. Please reach out to there office to make a follow up appointment. They should do repeat labs at this visit. Pending Studies at Discharge: Yes Stand-Alone Forms: My [facility], Smoking Cessation Medications and DC Order Prescriptions: New amoxicillin-pot clavulanate 875-125 mg tablet 1 tab PO BID 11 Days Qty: 22 0RF Continued metoprolol succinate 25 mg tablet extended release 24 hr 25 mg PO QAM Qty: 90 3RF pregabalin [Lyrica] 100 mg capsule 100 mg PO TID amlodipine 5 mg tablet 5 mg PO DAILY Qty: 90 3RF atorvastatin 40 mg tablet 80 mg PO QAM tamsulosin 0.4 mg Capsule 0.4 mg PO QAM omeprazole 20 mg Tablet,Delayed Release (Dr/Ec) 20 mg PO QAM acetaminophen [Tylenol Extra Strength] 500 mg Tablet 1,000 mg PO Q6H PRN (Reason: Pain) methocarbamol 500 mg tablet 500 mg PO TID varenicline tartrate 1 mg Tablet 1 mg PO BID cholecalciferol (vitamin D3) [Vitamin D3] 50 mcg (2,000 unit) Capsule 2,000 unit PO QAM aspirin 81 mg tablet,delayed release (DR/EC) 81 mg PO QAM Held lisinopril 20 mg tablet 40 mg PO QAM Hold Instructions: Lisinopril held due to RAJIV, creatinine is back to baseline. Resume at primary care follow-up, call primary care prior of elevated home blood pressures can resume earlier Discharge Orders: Discharge Order (Routine); Ordered 04/22/24 Ordered By: Shirley Byrd Admission Data Admit Date/Time: 04/20/24 04:12 Attending Provider: Aaron Stevens Admit Provider: Hayde Salas Primary Care Provider: Mela Newby Other Providers: Hayde Salas Resident Activity Tracking Resident Involvement: Resident Care Provided Care Provided: Adult Hospital Medicine
== END 2024-04-22 12:39 | disposition home or self-care (01) | DRG 194 ==
LOC: SUATTDRO → ED 23:10 → SUATTDRO 04-20 04:12 → EDINP 04-20 04:12 → 3N 04-20 10:47